=== PATIENT | female | born 1995 | race Caucasian/White ===

== ENCOUNTER → 2016-05-22 | Outpatient (CLI) | payer MEDICAID ==
[~2016-05-22] MED LIST: AMOXICILLIN 25250 MG PO; AMOXICILLIN875 MG PO; HUMIRA40 MG/0.1 SC; IBU800 M1 PO; NORCO 325 MG-51 TAB PO; PERCOCET 325 MG1 TA2 PO; PREDNISONE10 MG PO; PRENATAL MVI; REMICADE V100 MG/VIA IV; ULTRAM 50MG TAB50 MG PO; ZOFRAN8 MG PO; ZOLOFT 50MG50 MG PO
== END ==
LOC: EUO 05-21 14:00
DX: Z02.83 Encounter for blood-alcohol and blood-drug test (principal)

== ENCOUNTER 2016-06-06 16:02 | Outpatient (CLI) | payer MEDICAID ==
[~2016-06-06] VITALS: Ht 160 cm; Wt 67.7 kg
[~2016-06-06 16:02] MED LIST changes: -PRENATAL MVI; -REMICADE V100 MG/VIA IV; -ZOLOFT 50MG50 MG PO
[2016-06-06 16:41] VITALS: BP 91/53; PULSE 74; TEMP 97.7
[2016-06-06 16:50] LABS: ADJUSTED CALCIUM 9.4 mg/dL (8.4-10.2); ALBUMIN 3.9 gm/dL (3.5-5.0); BILIRUBIN,TOTAL 0.5 mg/dL (0.0-1.0); CALCIUM 9.3 mg/dL (8.4-10.2); CREATININE, serum 0.44 mg/dL (0.52-1.25); HEMATOCRIT 33.4 % (37.0-47.0); HEMOGLOBIN 10.8 g/dl (12.5-16.0); MEAN CELL VOLUME 85 fl (80.0-100.0); MEAN CORPUSCULAR HEMOGLOBIN 27 pg (27.0-31.0); MEAN CORPUSCULAR HGB CONC 32 g/dl (33.0-37.0); MEAN PLATELET VOLUME 11.2 fl (7.4-10.4); PLATELET COUNT 271 K/mm3 (130-400); POTASSIUM 3.7 mmol/L (3.4-5.0); RED BLOOD COUNT 3.93 M/mm3 (4.10-5.30); REDCELL DISTRIBUTION WIDTH-CV 15.2 % (11.5-14.5); TOTAL PROTEIN 7.8 gm/dL (6.4-8.2); WHITE BLOOD COUNT 14.8 K/mm3 (4.8-10.8)
[2016-06-06 17:26] VITALS: BP 97/60; PULSE 74; TEMP 97.8
[2016-06-06 18:06] VITALS: BP 101/52; PULSE 76; TEMP 98.5
[2016-06-06 18:34] VITALS: BP 103/58; PULSE 81; TEMP 97.9
[2016-06-06 19:06] VITALS: BP 91/54; PULSE 86; TEMP 98
[2016-06-06 19:25] VITALS: BP 88/56; PULSE 84; TEMP 98.4
== END 2016-06-06 19:26 | disposition home or self-care (01) ==
LOC: EUO 16:02
PROVIDERS: Internal Medicine Gastroenterology
DX: K50.90 Crohn's disease, unspecified, without complications (principal)
CPT/HCPCS: J1200; J1745; J2930; J7050

== ENCOUNTER → 2016-06-17 | Outpatient (CLI) | payer MEDICAID ==
[~2016-06-17] MED LIST changes: +PRENATAL MVI; +REMICADE V100 MG/VIA IV; +ZOLOFT 50MG50 MG PO
[2016-06-17 10:30] LABS: MEAN CELL VOLUME 84 fl (80.0-100.0); MEAN CORPUSCULAR HGB CONC 32 g/dl (33.0-37.0); MEAN PLATELET VOLUME 10.9 fl (7.4-10.4); PLATELET COUNT 246 K/mm3 (130-400); RED BLOOD COUNT 3.63 M/mm3 (4.10-5.30); REDCELL DISTRIBUTION WIDTH-CV 14.6 % (11.5-14.5)
[2016-06-17 10:38] LABS: ADD PATHOLOGY DIFF REVIEW NO; HEMATOCRIT 30.6 % (37.0-47.0); HEMOGLOBIN 9.9 g/dl (12.5-16.0); MEAN CORPUSCULAR HEMOGLOBIN 27 pg (27.0-31.0)
[2016-06-17 10:57] LABS: BAND 14 % (0-10); METAMYELOCYTE 1 % (0-0); NEUTROPHILS 71 % (42.0-75.2); TOTAL CELLS COUNTED 100
[2016-06-17 10:58] LABS: PLATELET ESTIMATE NORMAL (NORMAL)
== END ==
LOC: COL.LAB 09:51
PROVIDERS: Internal Medicine Gastroenterology
DX: K50.90 Crohn's disease, unspecified, without complications (principal); R19.7 Diarrhea, unspecified; R10.9 Unspecified abdominal pain

== ENCOUNTER 2016-07-27 13:11 | Outpatient (CLI) | payer MEDICAID ==
[~2016-07-27] VITALS: Ht 160 cm; Wt 75.5 kg
[~2016-07-27 13:11] MED LIST changes: -PRENATAL MVI; -REMICADE V100 MG/VIA IV; -ZOLOFT 50MG50 MG PO
[2016-07-27 13:29] VITALS: BP 108/60; PULSE 97; TEMP 99
[2016-07-27] MEDS ORDERED: REMICADE V100 MG/VIA IV (13:35)
[2016-07-27] MEDS ORDERED: ZOFRAN8 MG PO (13:36)
[2016-07-27] MEDS ORDERED: PRENATAL MVI (13:36)
[2016-07-27 13:53] VITALS: BP 98/56; PULSE 90
== END 2016-07-27 14:00 | disposition home or self-care (01) ==
LOC: LDRO 13:11
DX: M54.5 Low back pain (principal); Z3A.30 30 weeks gestation of pregnancy

== ENCOUNTER → 2016-08-05 | Outpatient (CLI) | payer MEDICAID ==
[~2016-08-05] VITALS: Ht 160 cm; Wt 75.3 kg
[~2016-08-05] MED LIST changes: +PRENATAL MVI; +REMICADE V100 MG/VIA IV; +ZOLOFT 50MG50 MG PO
[2016-08-05 14:59] LABS: HEMATOCRIT 29.9 % (37.0-47.0); HEMOGLOBIN 9.8 g/dl (12.5-16.0); MEAN CELL VOLUME 81 fl (80.0-100.0); MEAN CORPUSCULAR HEMOGLOBIN 27 pg (27.0-31.0); MEAN CORPUSCULAR HGB CONC 33 g/dl (33.0-37.0); PLATELET COUNT 314 K/mm3 (130-400); RED BLOOD COUNT 3.68 M/mm3 (4.10-5.30); REDCELL DISTRIBUTION WIDTH-CV 13.8 % (11.5-14.5); WHITE BLOOD COUNT 15.3 K/mm3 (4.8-10.8)
[2016-08-05 15:00] VITALS: BP 98/47; PULSE 79; TEMP 97.3
[2016-08-05 15:14] LABS: ADJUSTED CALCIUM 9.3 mg/dL (8.4-10.2); ALBUMIN 3.6 gm/dL (3.5-5.0); BILIRUBIN,TOTAL 0.5 mg/dL (0.0-1.0); CREATININE, serum 0.36 mg/dL (0.52-1.25); POTASSIUM 4.2 mmol/L (3.4-5.0)
== END ==
LOC: EUO 14:00
PROVIDERS: Internal Medicine Gastroenterology
DX: K50.90 Crohn's disease, unspecified, without complications (principal)

== ENCOUNTER 2016-08-12 11:30 | Outpatient (CLI) | payer MEDICAID ==
[~2016-08-12 11:30] MED LIST changes: -ZOLOFT 50MG50 MG PO
[2016-08-12 13:27] LABS: MEAN CELL VOLUME 82 fl (80.0-100.0); MEAN CORPUSCULAR HGB CONC 32 g/dl (33.0-37.0); PLATELET COUNT 326 K/mm3 (130-400); RED BLOOD COUNT 3.58 M/mm3 (4.10-5.30); REDCELL DISTRIBUTION WIDTH-CV 13.7 % (11.5-14.5); WHITE BLOOD COUNT 15.9 K/mm3 (4.8-10.8)
[2016-08-12 13:29] LABS: ADD PATHOLOGY DIFF REVIEW NO; HEMATOCRIT 29.4 % (37.0-47.0); HEMOGLOBIN 9.4 g/dl (12.5-16.0); MEAN CORPUSCULAR HEMOGLOBIN 26 pg (27.0-31.0)
[2016-08-12 13:41] LABS: BAND 3 % (0-10); NEUTROPHILS 86 % (42.0-75.2); TOTAL CELLS COUNTED 100
[2016-08-12 13:44] LABS: ANISOCYTOSIS 1+; HYPOCHROMIA 1+; POLYCHROMASIA 1+
== END 2016-08-19 15:10 | disposition home or self-care (01) ==
LOC: COL.LAB 11:30
PROVIDERS: Physician Assistant
DX: K50.90 Crohn's disease, unspecified, without complications (principal); R19.7 Diarrhea, unspecified; R10.9 Unspecified abdominal pain

== ENCOUNTER 2016-08-19 11:26 | Outpatient (CLI) | payer MEDICAID ==
[~2016-08-19] VITALS: Ht 160 cm; Wt 75.0 kg
[2016-08-19 11:59] VITALS: BP 96/52; PULSE 89; TEMP 98.6
[2016-08-19 12:08] LABS: ADJUSTED CALCIUM 9.1 mg/dL (8.4-10.2); ALBUMIN 3.6 gm/dL (3.5-5.0); BILIRUBIN,TOTAL 0.5 mg/dL (0.0-1.0); CALCIUM 8.8 mg/dL (8.4-10.2); CREATININE, serum 0.38 mg/dL (0.52-1.25); MEAN CELL VOLUME 81 fl (80.0-100.0); MEAN CORPUSCULAR HGB CONC 32 g/dl (33.0-37.0); MEAN PLATELET VOLUME 11.1 fl (7.4-10.4); PLATELET COUNT 228 K/mm3 (130-400); POTASSIUM 3.8 mmol/L (3.4-5.0); RED BLOOD COUNT 3.63 M/mm3 (4.10-5.30); REDCELL DISTRIBUTION WIDTH-CV 14.2 % (11.5-14.5); WHITE BLOOD COUNT 16.9 K/mm3 (4.8-10.8)
[2016-08-19 12:11] LABS: HEMATOCRIT 29.4 % (37.0-47.0); HEMOGLOBIN 9.4 g/dl (12.5-16.0); MEAN CORPUSCULAR HEMOGLOBIN 26 pg (27.0-31.0)
[2016-08-19 13:12] VITALS: BP 104/56; PULSE 81; TEMP 98.2
[2016-08-19 13:40] VITALS: BP 105/61; PULSE 88
[2016-08-19 14:10] VITALS: BP 96/54; PULSE 67
[2016-08-19 14:40] VITALS: BP 102/61; PULSE 83
== END 2016-08-19 16:00 | disposition home or self-care (01) ==
LOC: EUO 11:26
PROVIDERS: Physician Assistant
DX: O99.89 Other specified diseases and conditions complicating pregnancy, childbirth and the puerperium (principal); K50.00 Crohn's disease of small intestine without complications; Z3A.00 Weeks of gestation of pregnancy not specified
CPT/HCPCS: J1200; J1745; J2930; J7050

== ENCOUNTER 2016-09-21 15:59 | Outpatient (CLI) | payer MEDICAID ==
[~2016-09-21] VITALS: Ht 157.5 cm; Wt 76.8 kg
[2016-09-21 16:21] VITALS: BP 110/61; PULSE 68; TEMP 98.2
[2016-09-21 17:10] VITALS: BP 103/53; PULSE 73; TEMP 98.1
== END 2016-09-21 17:20 | disposition home or self-care (01) ==
LOC: LDRO
DX: Z34.83 Encounter for supervision of other normal pregnancy, third trimester (principal); Z3A.38 38 weeks gestation of pregnancy

== ENCOUNTER 2016-09-24 05:42 | Inpatient (IN) | payer MEDICAID ==
[2016-09-24] VITALS (19 sets, daily range): BP systolic 92–143; BP diastolic 48–83; PULSE 55–85; TEMP 97.8–98.3
[~2016-09-24] VITALS: Ht 157.5 cm; Wt 76.8 kg
[2016-09-24 06:19] LABS: BASO # 0.1 (0.0-0.2); BASO % 0.3 % (0.0-2.0); EOS # 0.1 (0.0-0.7); EOS % 0.8 % (0-4.0); GRAN # 12.1 (1.4-6.5); GRAN % 74.3 % (42.2-75.2); HEMATOCRIT 30.4 % (37.0-47.0); HEMOGLOBIN 9.8 g/dl (12.5-16.0); LYMPH # 2.7 (1.2-3.4); LYMPH % 16.4 % (20.0-51.0); MEAN CELL VOLUME 77 fl (80.0-100.0); MEAN CORPUSCULAR HEMOGLOBIN 25 pg (27.0-31.0); MEAN CORPUSCULAR HGB CONC 32 g/dl (33.0-37.0); MEAN PLATELET VOLUME 11.7 fl (7.4-10.4); MONO % 6.1 % (1.7-9.3); PLATELET COUNT 242 K/mm3 (130-400); RED BLOOD COUNT 3.93 M/mm3 (4.10-5.30); WHITE BLOOD COUNT 16.3 K/mm3 (4.8-10.8)
[2016-09-25 01:00] VITALS: BP 106/60; PULSE 68; TEMP 98.1
[2016-09-25 07:05] VITALS: BP 96/51; PULSE 58; TEMP 98.3
[2016-09-25] MEDS ORDERED: IBU800 M1 PO (08:57)
[2016-09-25] MEDS ORDERED: PERCOCET 325 MG1 TA2 PO (08:57)
[2016-09-25 20:45] VITALS: BP 110/53; PULSE 62; TEMP 98.5
[2016-09-26 08:30] VITALS: BP 104/57; PULSE 65; TEMP 98.1
[2016-09-26 12:00] VITALS: BP 105/62; PULSE 81; TEMP 98.2
== END 2016-09-26 12:15 | disposition home or self-care (01) | DRG 766 ==
LOC: OB 05:42
PROVIDERS: Obstetrics & Gynecology
PROC: 10D00Z1 Extraction of Products of Conception, Low, Open Approach (ICD-10-PCS; principal; 2016-09-24)
DX: O34.211 Maternal care for low transverse scar from previous cesarean delivery (principal); O32.1XX0 Maternal care for breech presentation, not applicable or unspecified; N85.8 Other specified noninflammatory disorders of uterus; Z3A.39 39 weeks gestation of pregnancy; Z37.0 Single live birth
CPT/HCPCS: J0690; J1885; J2175; J2270; J2405; J2590; J7120

== ENCOUNTER 2016-11-18 14:13 | Outpatient (CLI) | payer MEDICAID ==
[2016-11-18] VITALS (7 sets, daily range): BP systolic 99–127; BP diastolic 58–91; PULSE 42–48; TEMP 97.3–98.2
[~2016-11-18] VITALS: Ht 157.5 cm; Wt 68.1 kg
[2016-11-18 14:28] LABS: HEMATOCRIT 33.5 % (37.0-47.0); HEMOGLOBIN 10.5 g/dl (12.5-16.0); MEAN CELL VOLUME 78 fl (80.0-100.0); MEAN CORPUSCULAR HEMOGLOBIN 24 pg (27.0-31.0); MEAN CORPUSCULAR HGB CONC 31 g/dl (33.0-37.0); MEAN PLATELET VOLUME 11.3 fl (7.4-10.4); PLATELET COUNT 159 K/mm3 (130-400); RED BLOOD COUNT 4.32 M/mm3 (4.10-5.30); REDCELL DISTRIBUTION WIDTH-CV 15.7 % (11.5-14.5); WHITE BLOOD COUNT 6.4 K/mm3 (4.8-10.8)
[2016-11-18] MEDS ORDERED: ZOLOFT 50MG50 MG PO (14:42)
[2016-11-18 14:56] LABS: ADJUSTED CALCIUM 8.8 mg/dL (8.4-10.2); ALBUMIN 4.4 gm/dL (3.5-5.0); BILIRUBIN,TOTAL 0.5 mg/dL (0.0-1.0); CALCIUM 9.1 mg/dL (8.4-10.2); CREATININE, serum 0.55 mg/dL (0.52-1.25); TOTAL PROTEIN 7.5 gm/dL (6.4-8.2)
== END 2016-11-18 17:12 | disposition home or self-care (01) ==
LOC: EUO 14:13
PROVIDERS: Internal Medicine Gastroenterology
DX: K50.90 Crohn's disease, unspecified, without complications (principal)
CPT/HCPCS: J1200; J1745; J2930; J7050; Q5102-ZB

== ENCOUNTER 2017-08-22 01:21 | Emergency (ER) | payer MEDICAID ==
[~2017-08-22] VITALS: Ht 160 cm; Wt 61.4 kg
[~2017-08-22 01:21] MED LIST changes: +ZOLOFT 50MG50 MG PO
[2017-08-22 01:26] VITALS: BP 120/72; TEMP 96.9
[2017-08-22 02:05] LABS: MEAN CELL VOLUME 75 fl (80.0-100.0); MEAN CORPUSCULAR HEMOGLOBIN 23 pg (27.0-31.0); MEAN CORPUSCULAR HGB CONC 31 g/dl (33.0-37.0); MEAN PLATELET VOLUME 11.1 fl (7.4-10.4); PLATELET COUNT 328 K/mm3 (130-400); RED BLOOD COUNT 4.71 M/mm3 (4.10-5.30); REDCELL DISTRIBUTION WIDTH-CV 16.3 % (11.5-14.5)
[2017-08-22 02:14] LABS: HEMATOCRIT 35.3 % (37.0-47.0)
[2017-08-22 02:18] LABS: ALBUMIN 4.2 gm/dL (3.5-5.0); BILIRUBIN,TOTAL 0.3 mg/dL (0.0-1.0); CALCIUM 9.3 mg/dL (8.4-10.2); CREATININE, serum 0.45 mg/dL (0.52-1.25); TOTAL PROTEIN 8.4 gm/dL (6.4-8.2)
[2017-08-22 03:01] LABS: COLLECTION METHOD CLEAN CATCH
[2017-08-22 03:23] LABS: MUCOUS Present /lpf; PH 6 (5-8); SQUAMOUS EPITHELIAL 0-2 /hpf; URINE APPEARANCE Clear; URINE BACTERIA None Seen /hpf; URINE BILIRUBIN Negative (NEGATIVE); URINE BLOOD 2+ (NEGATIVE); URINE COLOR Yellow; URINE GLUCOSE Negative (NEGATIVE); URINE KETONE Trace (NEGATIVE); URINE LEUKOCYTE ESTERASE Trace (NEGATIVE); URINE NITRATE Negative (NEGATIVE); URINE PROTEIN(semi-quant) Negative (NEGATIVE); URINE UROBILINOGEN Negative (NEGATIVE)
[2017-08-22] MEDS ORDERED: PREDNISONE20 MG PO (04:09)
[2017-08-22 04:19] VITALS: PULSE 70
[2017-08-22 04:47] LABS: BAND 5 % (0-10); METAMYELOCYTE 1 % (0-0); NEUTROPHILS 90 % (42.0-75.2)
[2017-08-22 04:48] LABS: LYMPHOCYTE 4 % (20.0-51.0)
[2017-08-22 04:49] LABS: ANISOCYTOSIS 1+; HYPOCHROMIA 2+; POIKILOCYTOSIS 1+
[2017-08-22 04:50] LABS: PLATELET ESTIMATE NORMAL (NORMAL)
[2017-08-22 08:07] LABS: PATHOLOGY DIFF REVIEW OK
== END 2017-08-22 04:21 | disposition home or self-care (01) ==
LOC: COL.ER 01:21
PROVIDERS: Emergency Medicine
DX: K50.90 Crohn's disease, unspecified, without complications (principal); Z98.890 Other specified postprocedural states
CPT/HCPCS: J2765; J2930; J3010; J7030; Q9967

== ENCOUNTER → 2017-08-29 | Outpatient (CLI) | payer SELFPAY ==
[~2017-08-29] MED LIST changes: +PREDNISONE20 MG PO
== END ==
LOC: COL.RAD 06:14
DX: K50.90 Crohn's disease, unspecified, without complications (principal)
CPT/HCPCS: A9537; J2270

== ENCOUNTER 2017-09-18 14:30 | Outpatient (RCR) | payer OTHER ==
[2017-08-07 15:12] LABS: MEAN CELL VOLUME 76 fl (80.0-100.0); MEAN CORPUSCULAR HGB CONC 31 g/dl (33.0-37.0); MEAN PLATELET VOLUME 10.7 fl (7.4-10.4); PLATELET COUNT 469 K/mm3 (130-400); RED BLOOD COUNT 4.83 M/mm3 (4.10-5.30); REDCELL DISTRIBUTION WIDTH-CV 15.5 % (11.5-14.5)
[2017-08-07 15:13] LABS: HEMATOCRIT 36.5 % (37.0-47.0); HEMOGLOBIN 11.2 g/dl (12.5-16.0); MEAN CORPUSCULAR HEMOGLOBIN 23 pg (27.0-31.0)
[2017-08-07 15:30] LABS: ALBUMIN 4.2 gm/dL (3.5-5.0); BILIRUBIN,TOTAL 0.3 mg/dL (0.0-1.0); CALCIUM 9.1 mg/dL (8.4-10.2); CREATININE, serum 0.59 mg/dL (0.52-1.25); POTASSIUM 3.8 mmol/L (3.4-5.0); TOTAL PROTEIN 8.4 gm/dL (6.4-8.2)
[2017-08-07 16:27] VITALS: BP 105/63; PULSE 80; TEMP 98.1
[2017-08-07 16:58] VITALS: BP 98/55; PULSE 70; TEMP 98.1
[2017-08-07 17:28] VITALS: BP 99/63; PULSE 85; TEMP 99
[2017-08-21 14:44] VITALS: BP 99/60; PULSE 85; TEMP 98.9
[2017-08-21 15:08] LABS: BILIRUBIN,TOTAL 0.2 mg/dL (0.0-1.0); CALCIUM 9.1 mg/dL (8.4-10.2); CREATININE, serum 0.64 mg/dL (0.52-1.25); POTASSIUM 3.8 mmol/L (3.4-5.0); TOTAL PROTEIN 7.8 gm/dL (6.4-8.2)
[2017-08-21 15:28] LABS: HEMOGLOBIN 10.5 g/dl (12.5-16.0); MEAN CELL VOLUME 77 fl (80.0-100.0); MEAN CORPUSCULAR HEMOGLOBIN 24 pg (27.0-31.0); MEAN CORPUSCULAR HGB CONC 31 g/dl (33.0-37.0); MEAN PLATELET VOLUME 11.1 fl (7.4-10.4); PLATELET COUNT 304 K/mm3 (130-400); RED BLOOD COUNT 4.45 M/mm3 (4.10-5.30); REDCELL DISTRIBUTION WIDTH-CV 16.5 % (11.5-14.5)
[2017-08-21 15:35] LABS: HEMATOCRIT 34.3 % (37.0-47.0)
[~2017-09-18] VITALS: Ht 157.5 cm; Wt 60.9 kg
[2017-09-18 14:56] VITALS: BP 110/58; PULSE 84; TEMP 98.2
[2017-09-18 14:57] LABS: HEMOGLOBIN 11.1 g/dl (12.5-16.0); MEAN CELL VOLUME 77 fl (80.0-100.0); MEAN CORPUSCULAR HEMOGLOBIN 24 pg (27.0-31.0); MEAN CORPUSCULAR HGB CONC 31 g/dl (33.0-37.0); MEAN PLATELET VOLUME 10.8 fl (7.4-10.4); PLATELET COUNT 355 K/mm3 (130-400); RED BLOOD COUNT 4.68 M/mm3 (4.10-5.30); REDCELL DISTRIBUTION WIDTH-CV 17.4 % (11.5-14.5)
[2017-09-18 15:07] LABS: ALBUMIN 4.2 gm/dL (3.5-5.0); BILIRUBIN,TOTAL 0.3 mg/dL (0.0-1.0); CALCIUM 9.3 mg/dL (8.4-10.2); CREATININE, serum 0.56 mg/dL (0.52-1.25); POTASSIUM 4.4 mmol/L (3.4-5.0); TOTAL PROTEIN 8.3 gm/dL (6.4-8.2)
[2017-09-18 15:08] LABS: HEMATOCRIT 36.2 % (37.0-47.0)
[2017-09-18 15:35] VITALS: BP 110/72; PULSE 64; TEMP 98.2
[2017-09-18 16:05] VITALS: BP 110/72; PULSE 62; TEMP 98.2
[2017-09-18 17:05] VITALS: BP 112/72; PULSE 64; TEMP 98.2
[2017-09-18 17:15] VITALS: BP 114/78; PULSE 64; TEMP 98.2
== END 2017-11-04 17:14 | disposition home or self-care (01) ==
LOC: EUO 14:30
PROVIDERS: Internal Medicine Gastroenterology; Physician Assistant
DX: K50.90 Crohn's disease, unspecified, without complications (principal)
CPT/HCPCS: J1200; J1745; J2930; J7050; Q5103

== ENCOUNTER 2017-11-27 14:51 | Outpatient (CLI) | payer OTHER ==
[~2017-11-27] VITALS: Ht 157.5 cm; Wt 68.0 kg
[2017-11-27 15:15] LABS: HEMOGLOBIN 10.6 g/dl (12.5-16.0); MEAN CELL VOLUME 78 fl (80.0-100.0); MEAN CORPUSCULAR HEMOGLOBIN 25 pg (27.0-31.0); MEAN CORPUSCULAR HGB CONC 32 g/dl (33.0-37.0); MEAN PLATELET VOLUME 10.8 fl (7.4-10.4); PLATELET COUNT 305 K/mm3 (130-400); RED BLOOD COUNT 4.29 M/mm3 (4.10-5.30); REDCELL DISTRIBUTION WIDTH-CV 14.9 % (11.5-14.5)
[2017-11-27 15:16] LABS: HEMATOCRIT 33.5 % (37.0-47.0)
[2017-11-27 15:40] LABS: ALBUMIN 4.1 gm/dL (3.5-5.0); BILIRUBIN,TOTAL 0.4 mg/dL (0.0-1.0); CALCIUM 8.8 mg/dL (8.4-10.2); CREATININE, serum 0.53 mg/dL (0.52-1.25); POTASSIUM 3.3 mmol/L (3.4-5.0); TOTAL PROTEIN 7.6 gm/dL (6.4-8.2)
[2017-11-27 17:15] VITALS: BP 97/56; PULSE 60
[2017-11-27 17:45] VITALS: BP 109/62; PULSE 60
[2017-11-27 18:15] VITALS: BP 104/59; PULSE 52
[2017-11-27 18:50] VITALS: BP 96/50; PULSE 58
== END 2017-11-27 19:15 | disposition home or self-care (01) ==
LOC: EUO 14:51
PROVIDERS: Internal Medicine Gastroenterology
DX: K50.90 Crohn's disease, unspecified, without complications (principal); Z79.899 Other long term (current) drug therapy
CPT/HCPCS: J1200; J2930; J7050

== ENCOUNTER 2018-01-23 14:45 | Outpatient (CLI) | payer OTHER ==
[~2018-01-23] VITALS: Ht 157.5 cm; Wt 71.4 kg
[2018-01-23 15:38] LABS: HEMOGLOBIN 11.1 g/dl (12.5-16.0); MEAN CELL VOLUME 81 fl (80.0-100.0); MEAN CORPUSCULAR HEMOGLOBIN 26 pg (27.0-31.0); MEAN CORPUSCULAR HGB CONC 32 g/dl (33.0-37.0); MEAN PLATELET VOLUME 11.3 fl (7.4-10.4); PLATELET COUNT 317 K/mm3 (130-400); RED BLOOD COUNT 4.31 M/mm3 (4.10-5.30); REDCELL DISTRIBUTION WIDTH-CV 15.1 % (11.5-14.5)
[2018-01-23 15:47] LABS: HEMATOCRIT 34.9 % (37.0-47.0)
[2018-01-23 15:52] LABS: ALBUMIN 4.1 gm/dL (3.5-5.0); BILIRUBIN,TOTAL 0.3 mg/dL (0.0-1.0); CALCIUM 8.8 mg/dL (8.4-10.2); CREATININE, serum 0.52 mg/dL (0.52-1.25); POTASSIUM 3.5 mmol/L (3.4-5.0); TOTAL PROTEIN 7.6 gm/dL (6.4-8.2)
[2018-01-23 17:12] VITALS: BP 101/62; PULSE 57; TEMP 97.6
== END 2018-01-23 17:15 | disposition home or self-care (01) ==
LOC: EUO 14:45
PROVIDERS: Physician Assistant
DX: K50.90 Crohn's disease, unspecified, without complications (principal); Z79.899 Other long term (current) drug therapy
CPT/HCPCS: J1200; J1745; J2930

== ENCOUNTER 2018-02-17 15:36 | Outpatient (CLI) | payer OTHER ==
[~2018-02-17] VITALS: Ht 157.5 cm; Wt 69.9 kg
[2018-02-17 16:05] LABS: HEMOGLOBIN 10.5 g/dl (12.5-16.0); MEAN CELL VOLUME 79 fl (80.0-100.0); MEAN CORPUSCULAR HEMOGLOBIN 26 pg (27.0-31.0); MEAN CORPUSCULAR HGB CONC 32 g/dl (33.0-37.0); MEAN PLATELET VOLUME 10.6 fl (7.4-10.4); PLATELET COUNT 440 K/mm3 (130-400); RED BLOOD COUNT 4.12 M/mm3 (4.10-5.30)
[2018-02-17 16:07] LABS: HEMATOCRIT 32.7 % (37.0-47.0)
[2018-02-17 16:24] LABS: BILIRUBIN,TOTAL 0.2 mg/dL (0.0-1.0); CREATININE, serum 0.42 mg/dL (0.52-1.25); POTASSIUM 3.6 mmol/L (3.4-5.0); TOTAL PROTEIN 7.4 gm/dL (6.4-8.2)
[2018-02-17 17:00] VITALS: BP 105/65; PULSE 68; TEMP 98.2
[2018-02-17 17:30] VITALS: BP 101/56; PULSE 60
[2018-02-17 18:00] VITALS: BP 107/66; PULSE 76
[2018-02-17 18:30] VITALS: BP 103/68; PULSE 73
[2018-02-17 19:00] VITALS: BP 106/63; PULSE 64
[2018-02-17 19:12] VITALS: BP 101/65; PULSE 72
== END 2018-02-17 19:26 | disposition home or self-care (01) ==
LOC: EUO 15:36
PROVIDERS: Physician Assistant
DX: K50.90 Crohn's disease, unspecified, without complications (principal); Z79.899 Other long term (current) drug therapy
CPT/HCPCS: J1200; J1745; J2930; J7050

== ENCOUNTER 2018-02-19 17:36 | Emergency (ER) | payer SELFPAY ==
[~2018-02-19] VITALS: Ht 160 cm; Wt 69.1 kg
[2018-02-19 17:38] VITALS: TEMP 97.7
[2018-02-19 18:14] LABS: BASO # 0.1 (0.0-0.2); BASO % 0.7 % (0.0-2.0); EOS # 0.2 (0.0-0.7); EOS % 2.3 % (0-4.0); GRAN # 7.2 (1.4-6.5); GRAN % 68.7 % (42.2-75.2); HEMATOCRIT 37.1 % (37.0-47.0); HEMOGLOBIN 11.8 g/dl (12.5-16.0); LYMPH # 2.3 (1.2-3.4); LYMPH % 21.6 % (20.0-51.0); MEAN CELL VOLUME 79 fl (80.0-100.0); MEAN CORPUSCULAR HEMOGLOBIN 25 pg (27.0-31.0); MEAN CORPUSCULAR HGB CONC 32 g/dl (33.0-37.0); MEAN PLATELET VOLUME 10.6 fl (7.4-10.4); MONO # 0.7 (0.1-0.6); MONO % 6.2 % (1.7-9.3); PLATELET COUNT 495 K/mm3 (130-400); RED BLOOD COUNT 4.67 M/mm3 (4.10-5.30); REDCELL DISTRIBUTION WIDTH-CV 14.3 % (11.5-14.5)
[2018-02-19 18:27] LABS: COLLECTION METHOD CLEAN CATCH
[2018-02-19 18:29] LABS: ALBUMIN 4.3 gm/dL (3.5-5.0); BILIRUBIN,TOTAL 0.2 mg/dL (0.0-1.0); CALCIUM 9.2 mg/dL (8.4-10.2); CREATININE, serum 0.55 mg/dL (0.52-1.25); POTASSIUM 3.6 mmol/L (3.4-5.0); TOTAL PROTEIN 7.8 gm/dL (6.4-8.2)
[2018-02-19 18:39] LABS: MUCOUS Present /lpf; PH 6 (5-8); URINE APPEARANCE Clear; URINE BACTERIA Rare /hpf; URINE BILIRUBIN Negative (NEGATIVE); URINE BLOOD Negative (NEGATIVE); URINE COLOR Yellow; URINE GLUCOSE Negative (NEGATIVE); URINE KETONE Negative (NEGATIVE); URINE LEUKOCYTE ESTERASE Negative (NEGATIVE); URINE NITRATE Negative (NEGATIVE); URINE PROTEIN(semi-quant) 1+ (NEGATIVE); URINE RBC 0-2 /hpf; URINE UROBILINOGEN Negative (NEGATIVE)
[2018-02-19] MEDS ORDERED: ZOFRAN 4MG T4 MG/TAB PO (19:24)
[2018-02-19] MEDS ORDERED: NORCO 325 MG-51 TAB PO (19:24)
[2018-02-19] MEDS ORDERED: PREDNISONE10 MG PO (19:24)
[2018-02-19 19:33] VITALS: BP 108/74; PULSE 92
== END 2018-02-19 21:05 | disposition home or self-care (01) ==
LOC: COL.ER 17:36
PROVIDERS: Emergency Medicine
DX: R10.84 Generalized abdominal pain (principal); R19.7 Diarrhea, unspecified; R11.2 Nausea with vomiting, unspecified; K50.90 Crohn's disease, unspecified, without complications; Z98.890 Other specified postprocedural states
CPT/HCPCS: J1885; J2270; J2405; J7512; Q9967

== ENCOUNTER 2018-03-13 16:13 | Outpatient (CLI) | payer OTHER ==
[~2018-03-13] VITALS: Ht 160 cm; Wt 70.9 kg
[~2018-03-13 16:13] MED LIST changes: +CIPRO 500MG TA500 MG PO; +FLAGYL500 MG PO; +ZOFRAN 4MG T4 MG/TAB PO
[2018-03-13 16:42] LABS: HEMATOCRIT 39.2 % (37.0-47.0); HEMOGLOBIN 12.5 g/dl (12.5-16.0); MEAN CELL VOLUME 82 fl (80.0-100.0); MEAN CORPUSCULAR HEMOGLOBIN 26 pg (27.0-31.0); MEAN CORPUSCULAR HGB CONC 32 g/dl (33.0-37.0); MEAN PLATELET VOLUME 10.5 fl (7.4-10.4); PLATELET COUNT 319 K/mm3 (130-400); RED BLOOD COUNT 4.77 M/mm3 (4.10-5.30); REDCELL DISTRIBUTION WIDTH-CV 16.5 % (11.5-14.5)
[2018-03-13 16:58] LABS: ALBUMIN 4.1 gm/dL (3.5-5.0); BILIRUBIN,TOTAL 0.2 mg/dL (0.0-1.0); CALCIUM 9.3 mg/dL (8.4-10.2); CREATININE, serum 0.81 mg/dL (0.52-1.25); POTASSIUM 4.3 mmol/L (3.4-5.0); TOTAL PROTEIN 7.3 gm/dL (6.4-8.2)
[2018-03-13] MEDS ORDERED: IRON 27 MG PO (17:10)
[2018-03-13 17:20] VITALS: BP 104/64; PULSE 70; TEMP 98.2
[2018-03-13 17:50] VITALS: BP 79/43; PULSE 54; TEMP 98.1
[2018-03-13 18:20] VITALS: BP 97/59; PULSE 64; TEMP 98.4
[2018-03-13 18:50] VITALS: BP 104/60; PULSE 54; TEMP 98.1
[2018-03-13 19:18] VITALS: BP 100/51; PULSE 80; TEMP 98.1
== END 2018-03-13 19:28 | disposition home health service (06) ==
LOC: EUO 16:13
PROVIDERS: Physician Assistant
DX: K50.90 Crohn's disease, unspecified, without complications (principal); Z79.899 Other long term (current) drug therapy
CPT/HCPCS: J1200; J1745; J7050

== ENCOUNTER → 2018-04-14 | Emergency (ER) | payer OTHER ==
[~2018-04-14] VITALS: Ht 160 cm; Wt 68.2 kg
[~2018-04-14] MED LIST changes: +IRON 27 MG PO
[2018-04-14 18:54] VITALS: BP 118/75; TEMP 98.5
[2018-04-14 20:42] VITALS: PULSE 77
== END ==
LOC: COL.ER 18:42
DX: F41.9 Anxiety disorder, unspecified (principal); Z98.890 Other specified postprocedural states
CPT/HCPCS: J1885

== ENCOUNTER 2018-04-15 11:19 | Outpatient (CLI) | payer OTHER ==
[~2018-04-15] VITALS: Ht 160 cm; Wt 70.9 kg
[2018-04-15 11:56] LABS: HEMATOCRIT 40.4 % (37.0-47.0); MEAN CELL VOLUME 85 fl (80.0-100.0); MEAN CORPUSCULAR HEMOGLOBIN 27 pg (27.0-31.0); MEAN CORPUSCULAR HGB CONC 32 g/dl (33.0-37.0); MEAN PLATELET VOLUME 11.2 fl (7.4-10.4); PLATELET COUNT 284 K/mm3 (130-400); RED BLOOD COUNT 4.75 M/mm3 (4.10-5.30); REDCELL DISTRIBUTION WIDTH-CV 16.7 % (11.5-14.5)
[2018-04-15 12:06] LABS: ALBUMIN 4.3 gm/dL (3.5-5.0); BILIRUBIN,TOTAL 0.5 mg/dL (0.0-1.0); CALCIUM 9.1 mg/dL (8.4-10.2); CREATININE, serum 0.56 mg/dL (0.52-1.25); POTASSIUM 4.3 mmol/L (3.4-5.0); TOTAL PROTEIN 7.5 gm/dL (6.4-8.2)
[2018-04-15 13:30] VITALS: BP 99/60; PULSE 72; TEMP 97.1
[2018-04-15 14:00] VITALS: BP 99/58; PULSE 67; TEMP 97.1
[2018-04-15 14:30] VITALS: BP 101/58; PULSE 63; TEMP 98
[2018-04-15 15:00] VITALS: BP 100/47; PULSE 63; TEMP 98.1
[2018-04-15 15:35] VITALS: BP 99/54; PULSE 56; TEMP 98.1
== END 2018-04-15 15:48 | disposition home or self-care (01) ==
LOC: EUO 11:19
PROVIDERS: Physician Assistant
DX: K50.90 Crohn's disease, unspecified, without complications (principal)
CPT/HCPCS: J1200; J7050

== ENCOUNTER 2018-08-12 15:00 | Outpatient (RCR) | payer MEDICAID, OTHER ==
[2018-06-23 14:30] LABS: MEAN CELL VOLUME 86 fl (80.0-100.0); MEAN CORPUSCULAR HEMOGLOBIN 29 pg (27.0-31.0); MEAN CORPUSCULAR HGB CONC 34 g/dl (33.0-37.0); MEAN PLATELET VOLUME 11.2 fl (7.4-10.4); PLATELET COUNT 286 K/mm3 (130-400); RED BLOOD COUNT 4.12 M/mm3 (4.10-5.30); REDCELL DISTRIBUTION WIDTH-CV 13.2 % (11.5-14.5)
[2018-06-23 14:31] LABS: HEMATOCRIT 35.4 % (37.0-47.0)
[2018-06-23 14:40] LABS: ALBUMIN 4.4 gm/dL (3.5-5.0); BILIRUBIN,TOTAL 0.5 mg/dL (0.0-1.0); CALCIUM 9.2 mg/dL (8.4-10.2); CREATININE, serum 0.5 mg/dL (0.52-1.25); POTASSIUM 3.7 mmol/L (3.4-5.0); TOTAL PROTEIN 7.7 gm/dL (6.4-8.2)
[2018-06-23 15:00] VITALS: BP 95/59; PULSE 65; TEMP 98.3
--- NOTE | 2018-06-23 15:57 | NUR ---
[facility] [phone]
--- NOTE | 2018-06-23 17:14 | NUR ---
Spoke with Amber in pharmacy. She stated the Entyvio will 06/24/18 at 1500 if refrigerated. This RN placed medication in ICU om[facility]ell refrigerator. If the pt does not get her Entyvio tomorrow, please notify the Pharmacy [facility].
--- NOTE | 2018-06-23 17:32 | NUR ---
This RN informed Linh in Pharmacy that the pt does not want her Remicade.
[2018-06-24 11:04] VITALS: BP 90/49; PULSE 68; TEMP 98
--- NOTE | 2018-06-24 11:08 | NUR ---
Call received from Office nurse,Ángela terrazas to infuse entyvio today,orders received.
[2018-07-15 12:21] LABS: HEMOGLOBIN 10.7 g/dl (12.5-16.0); MEAN CELL VOLUME 86 fl (80.0-100.0); MEAN CORPUSCULAR HEMOGLOBIN 28 pg (27.0-31.0); MEAN CORPUSCULAR HGB CONC 33 g/dl (33.0-37.0); MEAN PLATELET VOLUME 10.9 fl (7.4-10.4); PLATELET COUNT 300 K/mm3 (130-400); REDCELL DISTRIBUTION WIDTH-CV 12.2 % (11.5-14.5)
[2018-07-15 12:27] LABS: HEMATOCRIT 32.8 % (37.0-47.0)
[2018-07-15 12:52] LABS: ALBUMIN 4.3 gm/dL (3.5-5.0); BILIRUBIN,TOTAL 0.5 mg/dL (0.0-1.0); CALCIUM 9.2 mg/dL (8.4-10.2); CREATININE, serum 0.54 (0.52-1.25); TOTAL PROTEIN 7.6 gm/dL (6.4-8.2)
[2018-07-15 13:35] VITALS: BP 97/52; PULSE 65; TEMP 98.9
[2018-07-15 13:45] VITALS: BP 101/55; PULSE 56
[2018-07-15 13:55] VITALS: BP 98/49; PULSE 55
[2018-07-15 14:05] VITALS: BP 100/49; PULSE 63; TEMP 98
[~2018-08-12] VITALS: Ht 160 cm; Wt 72.1 kg
[~2018-08-12 15:00] MED LIST changes: +ENTYVIO
[2018-08-12 16:32] LABS: MEAN CELL VOLUME 86 fl (80.0-100.0); MEAN CORPUSCULAR HGB CONC 31 g/dl (33.0-37.0); MEAN PLATELET VOLUME 11.2 fl (7.4-10.4); PLATELET COUNT 245 K/mm3 (130-400); RED BLOOD COUNT 3.37 M/mm3 (4.10-5.30); REDCELL DISTRIBUTION WIDTH-CV 12.2 % (11.5-14.5)
[2018-08-12 16:48] LABS: HEMATOCRIT 28.8 % (37.0-47.0); MEAN CORPUSCULAR HEMOGLOBIN 27 pg (27.0-31.0)
[2018-08-12 16:50] LABS: ALBUMIN 3.7 gm/dL (3.5-5.0); BILIRUBIN,TOTAL 0.1 mg/dL (0.0-1.0); CALCIUM 8.7 mg/dL (8.4-10.2); CREATININE, serum 0.49 (0.52-1.25); POTASSIUM 3.7 mmol/L (3.4-5.0); TOTAL PROTEIN 6.8 gm/dL (6.4-8.2)
[2018-08-12] MEDS ORDERED: NATURAL IRON65 MG PO (17:44)
[2018-08-12 17:45] VITALS: BP 99/56; PULSE 60; TEMP 98.3
== END 2018-08-12 18:24 | disposition home or self-care (01) ==
LOC: EUO 15:00
PROVIDERS: Internal Medicine Gastroenterology
DX: K51.90 Ulcerative colitis, unspecified, without complications (principal); Z79.899 Other long term (current) drug therapy
CPT/HCPCS: J1200; J2920; J3380; J7050

== ENCOUNTER 2018-11-09 13:12 | Outpatient (CLI) | payer MEDICAID ==
[~2018-11-09] VITALS: Ht 160 cm; Wt 67.0 kg
[~2018-11-09 13:12] MED LIST changes: +NATURAL IRON65 MG PO
[2018-11-09] MEDS ORDERED: CYMBALTA 60MG60 MG PO (13:38)
[2018-11-09 13:50] LABS: HEMATOCRIT 39.5 % (37.0-47.0); HEMOGLOBIN 12.7 g/dl (12.5-16.0); MEAN CELL VOLUME 80 fl (80.0-100.0); MEAN CORPUSCULAR HEMOGLOBIN 26 pg (27.0-31.0); MEAN CORPUSCULAR HGB CONC 32 g/dl (33.0-37.0); MEAN PLATELET VOLUME 11.2 fl (7.4-10.4); PLATELET COUNT 252 K/mm3 (130-400); RED BLOOD COUNT 4.95 M/mm3 (4.10-5.30); REDCELL DISTRIBUTION WIDTH-CV 17.4 % (11.5-14.5)
[2018-11-09 14:03] LABS: ALBUMIN 4.4 gm/dL (3.5-5.0); BILIRUBIN,TOTAL 0.3 mg/dL (0.0-1.0); CALCIUM 9.4 mg/dL (8.4-10.2); CREATININE, serum 0.5 (0.52-1.25); POTASSIUM 4.2 mmol/L (3.4-5.0); TOTAL PROTEIN 7.6 gm/dL (6.4-8.2)
[2018-11-09 14:40] VITALS: BP 93/54; PULSE 66; TEMP 97.9
[2018-11-09 15:07] VITALS: BP 99/59; PULSE 61
[2018-11-09 15:17] VITALS: BP 96/56; PULSE 56
[2018-11-09 15:27] VITALS: BP 95/58; PULSE 69
[2018-11-09 15:37] VITALS: BP 90/57; PULSE 68
== END 2018-11-09 15:41 | disposition home or self-care (01) ==
LOC: EUO 13:12
PROVIDERS: Internal Medicine Gastroenterology
DX: K51.90 Ulcerative colitis, unspecified, without complications (principal); Z79.899 Other long term (current) drug therapy
CPT/HCPCS: J1200; J2920; J2930; J3380; J7050

== ENCOUNTER → 2019-01-05 | Outpatient (CLI) | payer MEDICAID ==
[~2019-01-05] VITALS: Ht 160 cm; Wt 67.5 kg
[~2019-01-05] MED LIST changes: +CYMBALTA 60MG60 MG PO
[2019-01-05 13:43] LABS: HEMATOCRIT 39.6 % (37.0-47.0); HEMOGLOBIN 13.6 g/dl (12.5-16.0); MEAN CELL VOLUME 85 fl (80.0-100.0); MEAN CORPUSCULAR HEMOGLOBIN 29 pg (27.0-31.0); MEAN CORPUSCULAR HGB CONC 34 g/dl (33.0-37.0); MEAN PLATELET VOLUME 10.7 fl (7.4-10.4); PLATELET COUNT 237 K/mm3 (130-400); RED BLOOD COUNT 4.67 M/mm3 (4.10-5.30); REDCELL DISTRIBUTION WIDTH-CV 13.9 % (11.5-14.5)
[2019-01-05 13:57] LABS: ALBUMIN 4.5 gm/dL (3.5-5.0); BILIRUBIN,TOTAL 0.5 mg/dL (0.0-1.0); CALCIUM 8.8 mg/dL (8.4-10.2); CREATININE, serum 0.52 (0.52-1.25); POTASSIUM 3.8 mmol/L (3.4-5.0); TOTAL PROTEIN 7.7 gm/dL (6.4-8.2)
[2019-01-05 14:40] VITALS: BP 106/65; PULSE 81; TEMP 98.3
[2019-01-05 15:00] VITALS: BP 100/58; PULSE 68; TEMP 98.4
[2019-01-05 15:20] VITALS: BP 105/62; PULSE 72
[2019-01-05 15:30] VITALS: BP 103/58; PULSE 68
== END ==
LOC: EUO 13:00
PROVIDERS: Internal Medicine Gastroenterology
DX: K51.90 Ulcerative colitis, unspecified, without complications (principal)
CPT/HCPCS: J1200; J2930; J3380; J7050

== ENCOUNTER 2019-03-02 13:40 | Outpatient (CLI) | payer MEDICAID ==
[~2019-03-02] VITALS: Ht 160 cm; Wt 71.0 kg
[2019-03-02] MEDS ORDERED: WELCHOL 625MG625 MG PO (14:07)
[2019-03-02] MEDS ORDERED: VISTARIL50 MG PO (14:08)
[2019-03-02 14:14] LABS: HEMATOCRIT 41.5 % (37.0-47.0); HEMOGLOBIN 14.4 g/dl (12.5-16.0); MEAN CELL VOLUME 88 fl (80.0-100.0); MEAN CORPUSCULAR HEMOGLOBIN 31 pg (27.0-31.0); MEAN CORPUSCULAR HGB CONC 35 g/dl (33.0-37.0); MEAN PLATELET VOLUME 11.8 fl (7.4-10.4); PLATELET COUNT 263 K/mm3 (130-400); REDCELL DISTRIBUTION WIDTH-CV 11.8 % (11.5-14.5)
[2019-03-02 14:53] LABS: ALBUMIN 4.5 gm/dL (3.5-5.0); BILIRUBIN,TOTAL 0.4 mg/dL (0.0-1.0); CALCIUM 9.2 mg/dL (8.4-10.2); CREATININE, serum 0.64 (0.52-1.25); POTASSIUM 4.3 mmol/L (3.4-5.0); TOTAL PROTEIN 7.7 gm/dL (6.4-8.2)
[2019-03-02 15:53] VITALS: BP 104/60; PULSE 78; TEMP 97.9
== END 2019-03-02 17:04 | disposition home or self-care (01) ==
LOC: EUO 13:40
PROVIDERS: Internal Medicine Gastroenterology
DX: K51.90 Ulcerative colitis, unspecified, without complications (principal); Z79.899 Other long term (current) drug therapy
CPT/HCPCS: J1200; J2930; J3380; J7050

== ENCOUNTER 2019-05-05 14:00 | Outpatient (RCR) | payer MEDICAID ==
--- NOTE | 2019-04-27 14:00 | NUR ---
Pt insurance PA exp on 04/23/19. This nurse called Dr. Matos's office for [facility]. Nina at office stated she would submid an uremaritzant PA. Pt stated she would wait to hear from office.
[2019-04-27 14:15] LABS: ALBUMIN 4.6 gm/dL (3.5-5.0); BILIRUBIN,TOTAL 0.2 mg/dL (0.0-1.0); CALCIUM 9.1 mg/dL (8.4-10.2); CREATININE, serum 0.49 (0.52-1.25); HEMATOCRIT 41.4 % (37.0-47.0); HEMOGLOBIN 14.4 g/dl (12.5-16.0); MEAN CELL VOLUME 87 fl (80.0-100.0); MEAN CORPUSCULAR HEMOGLOBIN 30 pg (27.0-31.0); MEAN CORPUSCULAR HGB CONC 35 g/dl (33.0-37.0); MEAN PLATELET VOLUME 11.9 fl (7.4-10.4); PLATELET COUNT 278 K/mm3 (130-400); POTASSIUM 3.9 mmol/L (3.4-5.0); RED BLOOD COUNT 4.76 M/mm3 (4.10-5.30)
--- NOTE | 2019-04-27 14:30 | NUR ---
Nina stated she was waiting on a call back from insurance. Pt stated she was ok waiting.
--- NOTE | 2019-04-27 15:20 | NUR ---
Pt will leave and reschedule when PA in approved.
[~2019-05-05] VITALS: Ht 160 cm; Wt 75.4 kg
[~2019-05-05 14:00] MED LIST changes: +CYMBALTA 30MG30 MG PO; +DEPO-PROVER150 MG/M1 IM; +VISTARIL50 MG PO; +WELCHOL 625MG625 MG PO
[2019-05-05 14:52] VITALS: BP 100/61; PULSE 83; TEMP 97.9
[2019-05-05 15:10] LABS: HEMOGLOBIN 13.9 g/dl (12.5-16.0); MEAN CELL VOLUME 87 fl (80.0-100.0); MEAN CORPUSCULAR HEMOGLOBIN 30 pg (27.0-31.0); MEAN CORPUSCULAR HGB CONC 35 g/dl (33.0-37.0); PLATELET COUNT 287 K/mm3 (130-400); RED BLOOD COUNT 4.59 M/mm3 (4.10-5.30); REDCELL DISTRIBUTION WIDTH-CV 12.1 % (11.5-14.5)
[2019-05-05 15:25] LABS: ALBUMIN 4.4 gm/dL (3.5-5.0); BILIRUBIN,TOTAL 0.3 mg/dL (0.0-1.0); CALCIUM 9.3 mg/dL (8.4-10.2); CREATININE, serum 0.64 (0.52-1.25); POTASSIUM 3.6 mmol/L (3.4-5.0); TOTAL PROTEIN 7.6 gm/dL (6.4-8.2)
[2019-05-05 16:37] VITALS: BP 101/56; PULSE 75; TEMP 98.2
== END 2019-07-26 | disposition home or self-care (01) ==
LOC: EUO
PROVIDERS: Internal Medicine Gastroenterology
DX: K51.90 Ulcerative colitis, unspecified, without complications (principal); Z79.899 Other long term (current) drug therapy
CPT/HCPCS: J1200; J2920; J3380; J7050

== ENCOUNTER 2019-08-30 14:13 | Outpatient (CLI) | payer MEDICAID ==
[~2019-08-30] VITALS: Ht 160 cm; Wt 75.7 kg
[2019-08-30 14:55] LABS: HEMATOCRIT 41.4 % (37.0-47.0); MEAN CELL VOLUME 89 fl (80.0-100.0); MEAN CORPUSCULAR HEMOGLOBIN 30 pg (27.0-31.0); MEAN CORPUSCULAR HGB CONC 34 g/dl (33.0-37.0); MEAN PLATELET VOLUME 11.5 fl (7.4-10.4); PLATELET COUNT 268 K/mm3 (130-400); RED BLOOD COUNT 4.68 M/mm3 (4.10-5.30); REDCELL DISTRIBUTION WIDTH-CV 12.3 % (11.5-14.5)
[2019-08-30 15:15] LABS: ALBUMIN 4.4 gm/dL (3.5-5.0); BILIRUBIN,TOTAL 0.3 mg/dL (0.0-1.0); CREATININE, serum 0.46 (0.52-1.25); POTASSIUM 3.7 mmol/L (3.4-5.0); TOTAL PROTEIN 7.6 gm/dL (6.4-8.2)
[2019-08-30 16:34] VITALS: BP 100/654; PULSE 62; TEMP 98.4
--- NOTE | 2019-08-30 17:04 | NUR ---
report to Eldon Wood.
== END 2019-09-27 10:53 | disposition home or self-care (01) ==
LOC: EUO 14:13
PROVIDERS: Internal Medicine Gastroenterology
DX: K51.90 Ulcerative colitis, unspecified, without complications (principal); Z79.899 Other long term (current) drug therapy
CPT/HCPCS: J1200; J2920; J3380; J7050

== ENCOUNTER 2019-10-25 14:32 | Outpatient (CLI) | payer MEDICAID ==
[2019-10-25 14:53] VITALS: BP 102/68; PULSE 71; TEMP 99.2
[2019-10-25 14:54] LABS: HEMATOCRIT 41.2 % (37.0-47.0); MEAN CELL VOLUME 89 fl (80.0-100.0); MEAN CORPUSCULAR HEMOGLOBIN 30 pg (27.0-31.0); MEAN CORPUSCULAR HGB CONC 34 g/dl (33.0-37.0); MEAN PLATELET VOLUME 11.1 fl (7.4-10.4); PLATELET COUNT 237 K/mm3 (130-400); RED BLOOD COUNT 4.61 M/mm3 (4.10-5.30); REDCELL DISTRIBUTION WIDTH-CV 12.1 % (11.5-14.5)
[2019-10-25 15:08] LABS: ALBUMIN 4.3 gm/dL (3.5-5.0); BILIRUBIN,TOTAL 0.4 mg/dL (0.0-1.0); CALCIUM 8.9 mg/dL (8.4-10.2); CREATININE, serum 0.62 (0.52-1.25); POTASSIUM 3.4 mmol/L (3.4-5.0); TOTAL PROTEIN 7.7 gm/dL (6.4-8.2)
[2019-10-25 15:36] VITALS: BP 103/68; PULSE 63
[2019-10-25 15:47] VITALS: BP 101/66; PULSE 64
[2019-10-25 15:57] VITALS: BP 107/71; PULSE 59
[2019-10-25 16:06] VITALS: BP 102/66; PULSE 59; TEMP 98.7
== END 2019-10-25 17:01 | disposition home or self-care (01) ==
LOC: EUO 14:32
PROVIDERS: Internal Medicine Gastroenterology
DX: K51.90 Ulcerative colitis, unspecified, without complications (principal); Z79.899 Other long term (current) drug therapy
CPT/HCPCS: J1200; J2920; J3380; J7050

== ENCOUNTER 2019-12-31 11:23 | Outpatient (CLI) | payer MEDICAID ==
[~2019-12-31] VITALS: Ht 160 cm; Wt 75.0 kg
[2019-12-31 11:49] LABS: HEMATOCRIT 41.1 % (37.0-47.0); HEMOGLOBIN 14.1 g/dl (12.5-16.0); MEAN CELL VOLUME 90 fl (80.0-100.0); MEAN CORPUSCULAR HEMOGLOBIN 31 pg (27.0-31.0); MEAN CORPUSCULAR HGB CONC 34 g/dl (33.0-37.0); MEAN PLATELET VOLUME 11.3 fl (7.4-10.4); PLATELET COUNT 270 K/mm3 (130-400); RED BLOOD COUNT 4.58 M/mm3 (4.10-5.30); REDCELL DISTRIBUTION WIDTH-CV 11.9 % (11.5-14.5)
[2019-12-31 12:02] LABS: ALBUMIN 4.4 gm/dL (3.5-5.0); BILIRUBIN,TOTAL 0.5 mg/dL (0.0-1.0); CALCIUM 9.5 mg/dL (8.4-10.2); CREATININE, serum 0.6 (0.52-1.25); POTASSIUM 4.4 mmol/L (3.4-5.0); TOTAL PROTEIN 7.6 gm/dL (6.4-8.2)
[2019-12-31 12:49] VITALS: BP 100/58; PULSE 68; TEMP 98.5
[2019-12-31 13:00] VITALS: BP 101/65; PULSE 57
[2019-12-31 13:10] VITALS: BP 107/66; PULSE 51
[2019-12-31 13:20] VITALS: BP 103/66; PULSE 57
--- NOTE | 2019-12-31 13:41 | NUR ---
PT TOLERATED INFUSION WELL. I CALLED AND SPOKE TO PT AFTER SHE LEFT, NOTIFYING HER OF NEXT APPOINTMENT DATE/TIME OF 02/25/20 AT 1300.
== END 2019-12-31 13:44 | disposition home or self-care (01) ==
LOC: EUO 11:23
PROVIDERS: Internal Medicine Gastroenterology
DX: K51.90 Ulcerative colitis, unspecified, without complications (principal); Z79.899 Other long term (current) drug therapy
CPT/HCPCS: J1200; J2920; J3380; J7050

== ENCOUNTER 2020-02-25 13:09 | Outpatient (CLI) | payer MEDICAID ==
[~2020-02-25] VITALS: Ht 160 cm; Wt 78.3 kg
[2020-02-25 13:35] LABS: HEMATOCRIT 40.3 % (37.0-47.0); HEMOGLOBIN 13.9 g/dl (12.5-16.0); MEAN CELL VOLUME 89 fl (80.0-100.0); MEAN CORPUSCULAR HEMOGLOBIN 31 pg (27.0-31.0); MEAN CORPUSCULAR HGB CONC 35 g/dl (33.0-37.0); MEAN PLATELET VOLUME 10.9 fl (7.4-10.4); PLATELET COUNT 256 K/mm3 (130-400); RED BLOOD COUNT 4.51 M/mm3 (4.10-5.30); REDCELL DISTRIBUTION WIDTH-CV 11.9 % (11.5-14.5)
[2020-02-25 13:48] LABS: ALBUMIN 4.6 gm/dL (3.5-5.0); BILIRUBIN,TOTAL 0.6 mg/dL (0.0-1.0); CALCIUM 9.3 mg/dL (8.4-10.2); CREATININE, serum 0.56 (0.52-1.25); POTASSIUM 3.4 mmol/L (3.4-5.0); TOTAL PROTEIN 7.7 gm/dL (6.4-8.2)
[2020-02-25 14:01] VITALS: BP 97/65; PULSE 74; TEMP 98.7
[2020-02-25 14:50] VITALS: BP 104/68; PULSE 60
[2020-02-25 15:00] VITALS: BP 108/73; PULSE 62
[2020-02-25 15:10] VITALS: BP 102/69; PULSE 64; TEMP 98.8
--- NOTE | 2020-02-25 15:24 | NUR ---
Pt tolerates infusion without issue. IV DC'd with catheter intact. Site wrapped with coban. Pt ambulates from dept with steady gait.
== END 2020-02-25 15:27 | disposition home or self-care (01) ==
LOC: EUO 13:09
PROVIDERS: Internal Medicine Gastroenterology
DX: K51.90 Ulcerative colitis, unspecified, without complications (principal); Z79.899 Other long term (current) drug therapy
CPT/HCPCS: J1200; J2920; J3380; J7050

== ENCOUNTER 2020-04-21 13:10 | Outpatient (CLI) | payer MEDICAID ==
[~2020-04-21] VITALS: Ht 160 cm; Wt 78.2 kg
[2020-04-21 14:00] LABS: HEMATOCRIT 41.3 % (37.0-47.0); HEMOGLOBIN 14.1 g/dl (12.5-16.0); MEAN CELL VOLUME 90 fl (80.0-100.0); MEAN CORPUSCULAR HEMOGLOBIN 31 pg (27.0-31.0); MEAN CORPUSCULAR HGB CONC 34 g/dl (33.0-37.0); MEAN PLATELET VOLUME 11.1 fl (7.4-10.4); PLATELET COUNT 271 K/mm3 (130-400); RED BLOOD COUNT 4.57 M/mm3 (4.10-5.30); REDCELL DISTRIBUTION WIDTH-CV 11.7 % (11.5-14.5)
[2020-04-21 14:09] LABS: ALBUMIN 4.3 gm/dL (3.5-5.0); BILIRUBIN,TOTAL 0.6 mg/dL (0.0-1.0); CALCIUM 9.1 mg/dL (8.4-10.2); CREATININE, serum 0.59 (0.52-1.25); POTASSIUM 3.8 mmol/L (3.4-5.0); TOTAL PROTEIN 7.3 gm/dL (6.4-8.2)
--- NOTE | 2020-04-21 16:30 | NUR ---
Pt tolerated infusion well, she remained pwd and without complaint throughout. Unfortunately pt's vital signs were not recorded, however pt's condition remained stable throughout. Appointment was made and pt was given appointment card for next infusion.
== END 2020-04-21 16:20 | disposition home or self-care (01) ==
LOC: EUO 13:10
PROVIDERS: Internal Medicine Gastroenterology
DX: K51.90 Ulcerative colitis, unspecified, without complications (principal); Z79.899 Other long term (current) drug therapy
CPT/HCPCS: J1200; J2920; J3380; J7050

== ENCOUNTER 2020-06-16 13:15 | Outpatient (CLI) | payer MEDICAID ==
[~2020-06-16] VITALS: Ht 160 cm; Wt 81.0 kg
[2020-06-16 13:51] LABS: HEMATOCRIT 43.8 % (37.0-47.0); HEMOGLOBIN 14.7 g/dl (12.5-16.0); MEAN CELL VOLUME 91 fl (80.0-100.0); MEAN CORPUSCULAR HEMOGLOBIN 31 pg (27.0-31.0); MEAN CORPUSCULAR HGB CONC 34 g/dl (33.0-37.0); MEAN PLATELET VOLUME 11.2 fl (7.4-10.4); PLATELET COUNT 295 K/mm3 (130-400); REDCELL DISTRIBUTION WIDTH-CV 11.8 % (11.5-14.5)
[2020-06-16 14:05] LABS: ALBUMIN 4.3 gm/dL (3.5-5.0); BILIRUBIN,TOTAL 0.5 mg/dL (0.0-1.0); CALCIUM 8.9 mg/dL (8.4-10.2); CREATININE, serum 0.72 (0.52-1.25); POTASSIUM 3.7 mmol/L (3.4-5.0); TOTAL PROTEIN 7.4 gm/dL (6.4-8.2)
[2020-06-16 14:51] VITALS: BP 96/65; PULSE 76; TEMP 98
== END 2020-06-16 19:28 | disposition home or self-care (01) ==
LOC: EUO
PROVIDERS: Internal Medicine Gastroenterology
DX: K51.90 Ulcerative colitis, unspecified, without complications (principal); Z79.899 Other long term (current) drug therapy
CPT/HCPCS: J1200; J2930; J3380; J7050

== ENCOUNTER 2020-08-11 13:09 | Outpatient (CLI) | payer MEDICAID ==
[~2020-08-11] VITALS: Ht 160 cm; Wt 79.6 kg
[2020-08-11 14:08] LABS: HEMATOCRIT 40.7 % (37.0-47.0); HEMOGLOBIN 14.2 g/dl (12.5-16.0); MEAN CELL VOLUME 87 fl (80.0-100.0); MEAN CORPUSCULAR HEMOGLOBIN 31 pg (27.0-31.0); MEAN CORPUSCULAR HGB CONC 35 g/dl (33.0-37.0); MEAN PLATELET VOLUME 11.5 fl (7.4-10.4); PLATELET COUNT 268 K/mm3 (130-400); RED BLOOD COUNT 4.66 M/mm3 (4.10-5.30); REDCELL DISTRIBUTION WIDTH-CV 11.9 % (11.5-14.5)
[2020-08-11 14:22] LABS: ALBUMIN 4.3 gm/dL (3.5-5.0); BILIRUBIN,TOTAL 0.3 mg/dL (0.0-1.0); CALCIUM 9.2 mg/dL (8.4-10.2); CREATININE, serum 0.46 (0.52-1.25); POTASSIUM 3.5 mmol/L (3.4-5.0); TOTAL PROTEIN 7.6 gm/dL (6.4-8.2)
[2020-08-11 15:13] VITALS: BP 118/83; PULSE 70; TEMP 98.2
== END 2020-08-11 15:52 | disposition home or self-care (01) ==
LOC: EUO 13:09
PROVIDERS: Internal Medicine Gastroenterology
DX: K51.90 Ulcerative colitis, unspecified, without complications (principal); Z79.899 Other long term (current) drug therapy
CPT/HCPCS: J1200; J2930; J3380; J7050

== ENCOUNTER 2020-10-20 14:00 | Outpatient (CLI) | payer MEDICAID ==
[~2020-10-20] VITALS: Ht 160 cm; Wt 76.0 kg
[2020-10-20 14:22] LABS: BASO # 0.1 (0.0-0.2); BASO % 0.7 % (0.0-2.0); EOS # 0.2 (0.0-0.7); EOS % 3.1 % (0-4.0); GRAN # 4.7 (1.4-6.5); GRAN % 62.7 % (42.2-75.2); HEMATOCRIT 39.5 % (37.0-47.0); HEMOGLOBIN 13.8 g/dl (12.5-16.0); LYMPH # 1.9 (1.2-3.4); MEAN CELL VOLUME 89 fl (80.0-100.0); MEAN CORPUSCULAR HEMOGLOBIN 31 pg (27.0-31.0); MEAN CORPUSCULAR HGB CONC 35 g/dl (33.0-37.0); MEAN PLATELET VOLUME 11.8 fl (7.4-10.4); MONO # 0.5 (0.1-0.6); MONO % 7.2 % (1.7-9.3); PLATELET COUNT 262 K/mm3 (130-400); RED BLOOD COUNT 4.42 M/mm3 (4.10-5.30); REDCELL DISTRIBUTION WIDTH-CV 11.7 % (11.5-14.5)
[2020-10-20 14:31] LABS: ALBUMIN 4.1 gm/dL (3.5-5.0); BILIRUBIN,TOTAL 0.2 mg/dL (0.0-1.0); CREATININE, serum 0.49 (0.52-1.25); POTASSIUM 3.6 mmol/L (3.4-5.0); TOTAL PROTEIN 7.2 gm/dL (6.4-8.2)
[2020-10-20 15:30] VITALS: BP 99/64; PULSE 68; TEMP 98.5
== END 2020-10-20 16:15 | disposition home or self-care (01) ==
LOC: EUO 14:00
PROVIDERS: Internal Medicine Gastroenterology
DX: K50.80 Crohn's disease of both small and large intestine without complications (principal)
CPT/HCPCS: J1200; J2930; J3380; J7050

== ENCOUNTER 2020-12-20 15:05 | Outpatient (CLI) | payer MEDICAID ==
[~2020-12-20] VITALS: Ht 160 cm; Wt 72.3 kg
[2020-12-20 15:00] VITALS: BP 113/67; PULSE 52; TEMP 98
== END 2020-12-20 15:40 | disposition home or self-care (01) ==
LOC: EUO 15:05
DX: K50.80 Crohn's disease of both small and large intestine without complications (principal); Z79.899 Other long term (current) drug therapy
CPT/HCPCS: J1200; J2930; J3380; J7050

== ENCOUNTER 2021-02-04 13:34 | Inpatient (IN) | payer MEDICAID ==
[~2021-02-04] VITALS: Ht 160 cm; Wt 71.5 kg
[2021-02-04 14:50] LABS: BASO # 0.1 K/mm3 (0.0-0.2); BASO % 0.4 % (0.0-2.0); GRAN # 19.1 K/mm3 (1.4-6.5); GRAN % 89.7 % (42.2-75.2); HEMATOCRIT 40.9 % (37.0-47.0); HEMOGLOBIN 14.3 g/dl (12.5-16.0); LYMPH # 1.1 K/mm3 (1.2-3.4); LYMPH % 5.3 % (20.0-51.0); MEAN CELL VOLUME 89 fl (80.0-100.0); MEAN CORPUSCULAR HEMOGLOBIN 31 pg (27.0-31.0); MEAN CORPUSCULAR HGB CONC 35 g/dl (33.0-37.0); MEAN PLATELET VOLUME 11.6 fl (7.4-10.4); MONO # 0.8 K/mm3 (0.1-0.6); MONO % 3.8 % (1.7-9.3); PLATELET COUNT 303 K/mm3 (130-400); RED BLOOD COUNT 4.61 M/mm3 (4.10-5.30)
[2021-02-04 15:08] LABS: ALANINE AMINOTRANSFERASE 19 U/L (0-55); ALBUMIN 4.5 gm/dL (3.5-5.0); ALKALINE PHOSPHATASE 98 U/L (40-150); ANION GAP 14 mmol/L (7-16); AST,SGOT 18 U/L (5-34); BILIRUBIN,TOTAL 0.5 mg/dL (0.2-1.2); BLOOD UREA NITROGEN 8 mg/dL (7-19); CALCIUM 9.6 mg/dL (8.4-10.2); CARBON DIOXIDE 18 mmol/L (22-29); CHLORIDE 110 mmol/L (98-107); CREATININE, serum 0.69 mg/dL (0.57-1.11); GLUCOSE 137 mg/dL (70-99); LIPASE < 10 U/L (8-78); POTASSIUM 3.6 mmol/L (3.5-4.5); SODIUM 142 mmol/L (136-145); TOTAL PROTEIN 7.7 gm/dL (6.2-8.1)
[2021-02-04 15:46] LABS: COLLECTION METHOD CLEAN CATCH
[2021-02-04 15:57] LABS: MUCOUS Present /lpf; PH 5 (5-8); URINE APPEARANCE Cloudy; URINE BACTERIA None Seen /hpf; URINE BILIRUBIN Negative (NEGATIVE); URINE BLOOD 3+ (NEGATIVE); URINE COLOR Yellow; URINE GLUCOSE Negative (NEGATIVE); URINE KETONE 2+ (NEGATIVE); URINE LEUKOCYTE ESTERASE Negative (NEGATIVE); URINE NITRATE Negative (NEGATIVE); URINE PROTEIN(semi-quant) 1+ (NEGATIVE); URINE UROBILINOGEN Negative (NEGATIVE)
[2021-02-04] MEDS ORDERED: PAMELOR 25MG25 MG PO (18:40)
[2021-02-04] MEDS ORDERED: BUSPAR5 MG PO (18:40)
--- NOTE | 2021-02-04 19:35 | NUR ---
ARRIVED TO ROOM 347.
[2021-02-04 19:53] LABS: TRICYCLIC ANTIDEPRESS URINE NEGATIVE
--- NOTE | 2021-02-04 20:30 | NUR ---
ADMISSION QUESTIONS COMPLETED. PT IS ALERT AND ORIENTED X4. DR MARTINEZ HERE TO SEE PT. DENIES DIARRHEA, DID ADVISE OF NEED FOR STOOL SAMPLE, PT WILL LET STAFF KNOW. TAKING WATER AND HS MEDS WITHOUT VOMITING.
[2021-02-04 20:36] VITALS: BP 105/64; PULSE 50; TEMP 98.1
--- NOTE | 2021-02-04 21:06 | NUR ---
PT REPORTS PAIN TO UPPER ABD/CHEST. MEDICATED WITH MORPHINE 2MG IVP AND ZOFRAN 4MG IVP AT THIS TIME. IVF TO RT AC INFUSING WITHOUT PROBLEM. EDUCATED ON IV POTASSIUM.
--- NOTE | 2021-02-04 22:00 | NUR ---
PT REPORTS BURNING OF IV SITE WITH POTASSIUM, ICE PACK PROVIDED.
[2021-02-05] VITALS (15 sets, daily range): BP systolic 93–112; BP diastolic 42–67; PULSE 43–58; TEMP 97.9–98.4
--- NOTE | 2021-02-05 00:47 | NUR ---
COMPLAINS OF PAIN TO UPPER ABD. IS NPO FOR EGD AT 1000. MORPHINE 2MG IVP GIVEN.
--- NOTE | 2021-02-05 05:45 | NUR ---
PT MEDICATED WITH MORPHINE 2MG IVP FOR ABD PAIN. IV ANTIBIOTICS INFUSING WITHOUT PROBLEM.
[2021-02-05 06:46] LABS: BASO % 0.2 % (0.0-2.0); GRAN # 16.2 K/mm3 (1.4-6.5); GRAN % 87.8 % (42.2-75.2); HEMATOCRIT 37.3 % (37.0-47.0); HEMOGLOBIN 12.5 g/dl (12.5-16.0); LYMPH # 1.3 K/mm3 (1.2-3.4); LYMPH % 6.9 % (20.0-51.0); MEAN CELL VOLUME 93 fl (80.0-100.0); MEAN CORPUSCULAR HEMOGLOBIN 31 pg (27.0-31.0); MEAN CORPUSCULAR HGB CONC 34 g/dl (33.0-37.0); MEAN PLATELET VOLUME 11.8 fl (7.4-10.4); MONO # 0.8 K/mm3 (0.1-0.6); MONO % 4.2 % (1.7-9.3); PLATELET COUNT 263 K/mm3 (130-400); RED BLOOD COUNT 4.01 M/mm3 (4.10-5.30); REDCELL DISTRIBUTION WIDTH-CV 12.2 % (11.5-14.5)
[2021-02-05 07:09] LABS: CALCIUM 9.2 mg/dL (8.4-10.2); CREATININE, serum 0.59 mg/dL (0.57-1.11)
--- NOTE | 2021-02-05 09:00 | NUR ---
Patient called out complains of chest pain/pressure, states same as previous night . States she was given a couple of doses of morphine then pain subsided. Notified Hospitalist, Sayda ALAMO. New order for EKG. VSS.
--- NOTE | 2021-02-05 09:54 | NUR ---
Patient to Endo by bed.
--- NOTE | 2021-02-05 10:45 | NUR ---
Patient up from Endo at 1135, Post op VSS, post op fluids infusing at this time. Patient continues to complain of chest pain /, morphine given per orders. Denies further needs at this time.
--- NOTE | 2021-02-05 13:12 | NUR ---
Initial visit; Patient thanked Contact Person for looking in on her and offering God's blessings.
--- NOTE | 2021-02-05 18:33 | NUR ---
Patient doing well post EGD. Tolerating clear liquid diet. Fluids and antibiotics infusing per orders. Denies needs at this time. Will report off to manager shift.
--- NOTE | 2021-02-05 23:14 | NUR ---
Patient alert and oriented. Patient reports moderate pain to her abdomen area. Patient denies N/V. Patient tolerating clear liquid diet. PRN morphine given per JUN. All scheduled meds given per JUN. Call light in reach. Will continue to monitor.
[2021-02-06 03:31] VITALS: BP 99/59; PULSE 47; TEMP 98.1
--- NOTE | 2021-02-06 06:09 | NUR ---
Patient continues to have moderate abdominal pain radiating to chest area over the night. PRN morphine given per patient request for pain. No N/V or diarrhea noted. Call light in reach. Will give report to day shift nurse.
[2021-02-06 06:47] LABS: BASO % 0.3 % (0.0-2.0); EOS % 0.3 % (0-4.0); GRAN # 8.2 K/mm3 (1.4-6.5); GRAN % 68.5 % (42.2-75.2); HEMATOCRIT 37.4 % (37.0-47.0); HEMOGLOBIN 12.6 g/dl (12.5-16.0); LYMPH # 2.5 K/mm3 (1.2-3.4); LYMPH % 21.2 % (20.0-51.0); MEAN CELL VOLUME 91 fl (80.0-100.0); MEAN CORPUSCULAR HEMOGLOBIN 31 pg (27.0-31.0); MEAN CORPUSCULAR HGB CONC 34 g/dl (33.0-37.0); MEAN PLATELET VOLUME 12.3 fl (7.4-10.4); MONO # 1.1 K/mm3 (0.1-0.6); MONO % 9.1 % (1.7-9.3); PLATELET COUNT 252 K/mm3 (130-400); RED BLOOD COUNT 4.12 M/mm3 (4.10-5.30); REDCELL DISTRIBUTION WIDTH-CV 12.4 % (11.5-14.5)
[2021-02-06 07:07] LABS: CALCIUM 9.2 mg/dL (8.4-10.2); CREATININE, serum 0.66 mg/dL (0.57-1.11); POTASSIUM 4.2 mmol/L (3.5-4.5)
[2021-02-06 07:40] VITALS: BP 103/59; PULSE 51; TEMP 97.9
--- NOTE | 2021-02-06 08:30 | NUR ---
Patient in bed resting. Alert and oriented x 3. Assessment complete. IV fluids infusing to left wrist IV. Patient states mild pain to lower abdomen, denies need for pain medication at this time. Denies further needs at this time.
--- NOTE | 2021-02-06 10:40 | NUR ---
Patient complaining of chest pain, upon entering room patient sitting up in bed. Family at bedside. States pain started after eating applesauce. VSS 117/74, HR 53, O2 100 on RA. Patient then states that she is having numbness and tingling to left hand up to her wrist. Oxycodone given for pain. Notified hospitalist, Elaina ALAMO. No further needs at this time.
[2021-02-06 11:17] VITALS: BP 109/59; PULSE 76; TEMP 98.3
--- NOTE | 2021-02-06 11:34 | NUR ---
SW met with patient at bedside to discuss discharge plan. Patient is single and lives in [place] with her BF; she states she is fully independent and works f/t. She has no DME's; PCP is Jane Blackburn and she obtains her prescriptions from [facility] in [place] with no difficulty. GI consulted with patient yesterday and has discharged patient's IV antibiotics, switching her to oral antibiotics. Patient's mother is listed as her contact - Kya Llanes and her number is [phone]. Patient states she does not have an MPOA and she is not interested in one. SW will continue to follow. D/C Plan: Home
[2021-02-06] MEDS ORDERED: PROTONIX 40MG T40 MG PO (15:03)
[2021-02-06] MEDS ORDERED: CARAFATE S1 GM/10 ML PO (15:04)
[2021-02-06] MEDS ORDERED: PREDNISONE10 MG PO (15:07)
[2021-02-06] MEDS ORDERED: CIPRO 500MG TA500 MG PO (15:08)
[2021-02-06] MEDS ORDERED: FLAGYL500 MG PO (15:08)
[2021-02-06] MEDS ORDERED: ROXICODONE 55 MG/TAB PO (15:11)
[2021-02-06] MEDS ORDERED: ZOFRAN ODT4 MG PO (15:18)
--- NOTE | 2021-02-06 16:30 | NUR ---
Discharge education provided to patient. Educated on when to call provider and scheduling follow up appointment. Educated on medication changes. Patient educated on all new medications. All questions answered. INT to LW discontinued, catheter tip intact. Denies further needs at this time.
== END 2021-02-06 16:30 | disposition home or self-care (01) | DRG 872 ==
LOC: COL.ER 13:34 → SURG 18:11
PROVIDERS: Internal Medicine Gastroenterology; Nurse Practitioner Family; Physician Assistant; ADMIT Family Medicine
PROC: 0DB78ZX Excision of Stomach, Pylorus, Via Natural or Artificial Opening Endoscopic, Diagnostic (ICD-10-PCS; principal; 2021-02-05 10:00)
DX: A41.9 Sepsis, unspecified organism (principal); K50.00 Crohn's disease of small intestine without complications; E87.2 Acidosis; F41.9 Anxiety disorder, unspecified; F32.A Depression, unspecified; K52.9 Noninfective gastroenteritis and colitis, unspecified; R73.9 Hyperglycemia, unspecified; K29.70 Gastritis, unspecified, without bleeding
CPT/HCPCS: 99223-AI; 99232-AI; 99239; C9113; J0744; J2270; J2405; J2704; J2920; J3480; J7030; J7120; Q9967

== ENCOUNTER 2021-02-14 15:27 | Outpatient (CLI) | payer MEDICAID ==
[2021-02-14 15:06] LABS: HEMATOCRIT 40.8 % (37.0-47.0); HEMOGLOBIN 14.1 g/dl (12.5-16.0); MEAN CELL VOLUME 89 fl (80.0-100.0); MEAN CORPUSCULAR HEMOGLOBIN 31 pg (27.0-31.0); MEAN CORPUSCULAR HGB CONC 35 g/dl (33.0-37.0); MEAN PLATELET VOLUME 11.4 fl (7.4-10.4); PLATELET COUNT 271 K/mm3 (130-400); RED BLOOD COUNT 4.57 M/mm3 (4.10-5.30)
[2021-02-14 15:27] LABS: BILIRUBIN,TOTAL 0.4 mg/dL (0.2-1.2); CALCIUM 9.3 mg/dL (8.4-10.2); CREATININE, serum 0.66 mg/dL (0.57-1.11); POTASSIUM 4.1 mmol/L (3.5-4.5); TOTAL PROTEIN 7.1 gm/dL (6.2-8.1)
[~2021-02-14 15:27] MED LIST changes: +BUSPAR5 MG PO; +CARAFATE S1 GM/10 ML PO; +PAMELOR 25MG25 MG PO; +PROTONIX 40MG T40 MG PO; +ROXICODONE 55 MG/TAB PO; +ZOFRAN ODT4 MG PO
[2021-02-14 15:38] VITALS: BP 93/57; PULSE 74; TEMP 98.4
== END 2021-02-14 20:00 | disposition home or self-care (01) ==
LOC: EUO 15:27
PROVIDERS: Internal Medicine Gastroenterology
DX: K50.80 Crohn's disease of both small and large intestine without complications (principal)
CPT/HCPCS: J1200; J2920; J3380; J7050

== ENCOUNTER 2021-04-23 15:30 | Outpatient (CLI) | payer MEDICAID ==
--- NOTE | 2021-04-17 16:20 | NUR ---
PT WAS A NO CALL , NO SHOW
[~2021-04-23] VITALS: Ht 160 cm; Wt 67.7 kg
[2021-04-23 15:55] LABS: BASO % 0.3 % (0.0-2.0); EOS # 0.2 K/mm3 (0.0-0.7); GRAN # 5.9 K/mm3 (1.4-6.5); GRAN % 66.5 % (42.2-75.2); HEMATOCRIT 39.4 % (37.0-47.0); HEMOGLOBIN 13.3 g/dl (12.5-16.0); MEAN CELL VOLUME 90 fl (80.0-100.0); MEAN CORPUSCULAR HEMOGLOBIN 30 pg (27-31); MEAN CORPUSCULAR HGB CONC 34 g/dl (33.0-37.0); MEAN PLATELET VOLUME 11.5 fl (7.4-10.4); MONO # 0.7 K/mm3 (0.1-0.6); MONO % 7.9 % (1.7-9.3); PLATELET COUNT 283 K/mm3 (130-400); RED BLOOD COUNT 4.39 M/mm3 (4.10-5.30); REDCELL DISTRIBUTION WIDTH-CV 11.9 % (11.5-14.5)
[2021-04-23 16:27] VITALS: BP 104/66; PULSE 62; TEMP 98.5
[2021-04-23 16:33] LABS: ALBUMIN 4.1 gm/dL (3.5-5.0); BILIRUBIN,TOTAL 0.3 mg/dL (0.2-1.2); CALCIUM 8.9 mg/dL (8.4-10.2); CREATININE, serum 0.65 mg/dL (0.57-1.11); POTASSIUM 3.8 mmol/L (3.5-4.5); TOTAL PROTEIN 7.4 gm/dL (6.2-8.1)
[2021-04-23 17:13] VITALS: BP 95/64; PULSE 58
== END 2021-04-23 17:17 | disposition home or self-care (01) ==
LOC: EUO 15:30
PROVIDERS: Internal Medicine Gastroenterology
DX: K50.80 Crohn's disease of both small and large intestine without complications (principal); Z79.899 Other long term (current) drug therapy
CPT/HCPCS: J1200; J2920; J3380; J7050

== ENCOUNTER 2021-06-19 14:11 | Outpatient (CLI) | payer MEDICAID ==
[2021-06-19 14:30] LABS: BASO # 0.1 K/mm3 (0.0-0.2); BASO % 0.5 % (0.0-2.0); EOS # 0.2 K/mm3 (0.0-0.7); EOS % 1.6 % (0.0-4.0); GRAN # 8.4 K/mm3 (1.4-6.5); GRAN % 70.2 % (42.2-75.2); HEMOGLOBIN 13.6 g/dl (12.5-16.0); LYMPH # 2.5 K/mm3 (1.2-3.4); LYMPH % 21.1 % (20.0-51.0); MEAN CELL VOLUME 88 fl (80.0-100.0); MEAN CORPUSCULAR HEMOGLOBIN 30 pg (27-31); MEAN CORPUSCULAR HGB CONC 34 g/dl (33.0-37.0); MEAN PLATELET VOLUME 11.6 fl (7.4-10.4); MONO # 0.8 K/mm3 (0.1-0.6); MONO % 6.3 % (1.7-9.3); PLATELET COUNT 277 K/mm3 (130-400); RED BLOOD COUNT 4.56 M/mm3 (4.10-5.30); REDCELL DISTRIBUTION WIDTH-CV 12.2 % (11.5-14.5)
[2021-06-19 14:54] LABS: ALBUMIN 4.4 gm/dL (3.5-5.0); BILIRUBIN,TOTAL 0.3 mg/dL (0.2-1.2); CREATININE, serum 0.67 mg/dL (0.57-1.11); POTASSIUM 3.6 mmol/L (3.5-4.5); TOTAL PROTEIN 7.5 gm/dL (6.2-8.1)
[2021-06-19 15:59] VITALS: BP 96/55; PULSE 70; TEMP 98.5
== END 2021-06-19 17:04 ==
LOC: EUO 14:11
PROVIDERS: Internal Medicine Gastroenterology
DX: K50.80 Crohn's disease of both small and large intestine without complications (principal)
CPT/HCPCS: J1200; J2920; J3380; J7050

== ENCOUNTER 2021-08-31 16:06 | Outpatient (CLI) | payer MEDICAID ==
[~2021-08-31] VITALS: Ht 160 cm; Wt 68.1 kg
[2021-08-31 15:23] LABS: BASO % 0.4 % (0.0-2.0); EOS # 0.2 K/mm3 (0.0-0.7); EOS % 2.4 % (0.0-4.0); GRAN # 6.6 K/mm3 (1.4-6.5); GRAN % 70.3 % (42.2-75.2); HEMATOCRIT 37.5 % (37.0-47.0); HEMOGLOBIN 13.2 g/dl (12.5-16.0); LYMPH % 21.1 % (20.0-51.0); MEAN CELL VOLUME 87 fl (80.0-100.0); MEAN CORPUSCULAR HEMOGLOBIN 31 pg (27-31); MEAN CORPUSCULAR HGB CONC 35 g/dl (33.0-37.0); MONO # 0.5 K/mm3 (0.1-0.6); MONO % 5.6 % (1.7-9.3); PLATELET COUNT 264 K/mm3 (130-400); RED BLOOD COUNT 4.29 M/mm3 (4.10-5.30)
[2021-08-31 15:41] LABS: ALBUMIN 4.1 gm/dL (3.5-5.0); BILIRUBIN,TOTAL 0.4 mg/dL (0.2-1.2); CALCIUM 8.9 mg/dL (8.4-10.2); CREATININE, serum 0.7 mg/dL (0.57-1.11); POTASSIUM 3.9 mmol/L (3.5-4.5); TOTAL PROTEIN 7.1 gm/dL (6.2-8.1)
[2021-08-31 16:25] VITALS: BP 100/63; PULSE 67; TEMP 98
== END 2021-08-31 17:05 | disposition home or self-care (01) ==
LOC: EUO 16:06
PROVIDERS: Internal Medicine Gastroenterology
DX: K50.80 Crohn's disease of both small and large intestine without complications (principal); Z79.899 Other long term (current) drug therapy
CPT/HCPCS: J1200; J2920; J3380; J7050

== ENCOUNTER 2021-10-26 15:07 | Outpatient (CLI) | payer MEDICAID ==
[2021-10-26 15:27] LABS: BASO % 0.3 % (0.0-2.0); EOS # 0.2 K/mm3 (0.0-0.7); EOS % 1.9 % (0.0-4.0); GRAN % 74.5 % (42.2-75.2); HEMATOCRIT 37.5 % (37.0-47.0); HEMOGLOBIN 13.5 g/dl (12.5-16.0); LYMPH # 1.8 K/mm3 (1.2-3.4); LYMPH % 15.3 % (20.0-51.0); MEAN CELL VOLUME 87 fl (80.0-100.0); MEAN CORPUSCULAR HEMOGLOBIN 31 pg (27-31); MEAN CORPUSCULAR HGB CONC 36 g/dl (33.0-37.0); MEAN PLATELET VOLUME 11.3 fl (7.4-10.4); MONO # 0.9 K/mm3 (0.1-0.6); MONO % 7.4 % (1.7-9.3); PLATELET COUNT 210 K/mm3 (130-400); REDCELL DISTRIBUTION WIDTH-CV 12.7 % (11.5-14.5)
[2021-10-26 15:50] LABS: ALBUMIN 3.7 gm/dL (3.5-5.0); BILIRUBIN,TOTAL 0.4 mg/dL (0.2-1.2); CALCIUM 8.9 mg/dL (8.4-10.2); CREATININE, serum 0.55 mg/dL (0.57-1.11); TOTAL PROTEIN 6.7 gm/dL (6.2-8.1)
[2021-10-26] MEDS ORDERED: ZOFRAN 4MG T4 MG/TAB PO (17:09)
[2021-10-26] MEDS ORDERED: PRENATAL PO (17:10)
[2021-10-26 17:12] VITALS: BP 88/48; PULSE 70; TEMP 98.8
== END 2021-10-26 18:00 | disposition home or self-care (01) ==
LOC: EUO 15:07
PROVIDERS: Internal Medicine Gastroenterology
DX: K50.80 Crohn's disease of both small and large intestine without complications (principal)
CPT/HCPCS: J1200; J2920; J3380; J7050

== ENCOUNTER → 2021-11-02 | Outpatient (CLI) | payer MEDICAID ==
[~2021-11-02] MED LIST changes: +PRENATAL PO
[2021-11-02 15:03] LABS: BASO # 0.1 K/mm3 (0.0-0.2); BASO % 0.3 % (0.0-2.0); EOS # 0.2 K/mm3 (0.0-0.7); EOS % 1.4 % (0.0-4.0); GRAN # 12.5 K/mm3 (1.4-6.5); GRAN % 77.6 % (42.2-75.2); HEMATOCRIT 37.7 % (37.0-47.0); HEMOGLOBIN 13.4 g/dl (12.5-16.0); LYMPH # 2.2 K/mm3 (1.2-3.4); LYMPH % 13.7 % (20.0-51.0); MEAN CELL VOLUME 89 fl (80.0-100.0); MEAN CORPUSCULAR HEMOGLOBIN 32 pg (27-31); MEAN CORPUSCULAR HGB CONC 36 g/dl (33.0-37.0); PLATELET COUNT 221 K/mm3 (130-400); RED BLOOD COUNT 4.24 M/mm3 (4.10-5.30); REDCELL DISTRIBUTION WIDTH-CV 12.8 % (11.5-14.5)
== END ==
LOC: COL.LAB 14:35
PROVIDERS: Physician Assistant
DX: D72.829 Elevated white blood cell count, unspecified (principal)

== ENCOUNTER 2021-12-21 12:55 | Outpatient (CLI) | payer MEDICAID ==
[~2021-12-21] VITALS: Ht 160 cm; Wt 71.9 kg
[2021-12-21 13:21] LABS: HEMOGLOBIN 12.3 g/dl (12.5-16.0); MEAN CELL VOLUME 91 fl (80.0-100.0); MEAN CORPUSCULAR HEMOGLOBIN 32 pg (27-31); MEAN CORPUSCULAR HGB CONC 35 g/dl (33.0-37.0); MEAN PLATELET VOLUME 11.4 fl (7.4-10.4); PLATELET COUNT 215 K/mm3 (130-400); RED BLOOD COUNT 3.83 M/mm3 (4.10-5.30); REDCELL DISTRIBUTION WIDTH-CV 12.9 % (11.5-14.5)
[2021-12-21 13:23] LABS: HEMATOCRIT 34.9 % (37.0-47.0)
[2021-12-21 13:45] LABS: ALBUMIN 3.4 gm/dL (3.5-5.0); BILIRUBIN,TOTAL 0.3 mg/dL (0.2-1.2); CALCIUM 8.9 mg/dL (8.4-10.2); CREATININE, serum 0.56 mg/dL (0.57-1.11); POTASSIUM 3.5 mmol/L (3.5-4.5); TOTAL PROTEIN 6.5 gm/dL (6.2-8.1)
[2021-12-21 13:47] LABS: BAND 3 % (0-10); LYMPHOCYTE 14 % (20.0-51.0); METAMYELOCYTE 1 % (0-0); NEUTROPHILS 79 % (42.0-75.2); PLATELET ESTIMATE NORMAL (NORMAL)
[2021-12-21 14:07] VITALS: BP 97/61; PULSE 80; TEMP 98.3
[2021-12-21] MEDS ORDERED: ASPIRIN E.C. 8181 MG PO (15:43)
== END 2021-12-21 15:44 | disposition home or self-care (01) ==
LOC: EUO 12:55
PROVIDERS: Internal Medicine Gastroenterology
DX: K50.80 Crohn's disease of both small and large intestine without complications (principal); Z79.899 Other long term (current) drug therapy
CPT/HCPCS: J1200; J2930; J3380; J7050

== ENCOUNTER 2022-02-15 08:30 | Outpatient (CLI) | payer MEDICAID ==
[~2022-02-15] VITALS: Ht 160 cm; Wt 79.3 kg
[~2022-02-15 08:30] MED LIST changes: +ASPIRIN E.C. 8181 MG PO
[2022-02-15 08:54] LABS: HEMOGLOBIN 12.2 g/dl (12.5-16.0); MEAN CELL VOLUME 92 fl (80.0-100.0); MEAN CORPUSCULAR HEMOGLOBIN 32 pg (27-31); MEAN CORPUSCULAR HGB CONC 35 g/dl (33.0-37.0); MEAN PLATELET VOLUME 11.6 fl (7.4-10.4); PLATELET COUNT 183 K/mm3 (130-400); RED BLOOD COUNT 3.81 M/mm3 (4.10-5.30); REDCELL DISTRIBUTION WIDTH-CV 12.3 % (11.5-14.5)
[2022-02-15 09:13] LABS: ALBUMIN 3.1 gm/dL (3.5-5.0); BILIRUBIN,TOTAL 0.2 mg/dL (0.2-1.2); CALCIUM 8.6 mg/dL (8.4-10.2); CREATININE, serum 0.53 mg/dL (0.57-1.11); POTASSIUM 3.9 mmol/L (3.5-4.5); TOTAL PROTEIN 6.2 gm/dL (6.2-8.1)
[2022-02-15 09:31] LABS: BAND 7 % (0-10); BASOPHIL 1 % (0-2); LYMPHOCYTE 4 % (20.0-51.0); METAMYELOCYTE 3 % (0-0); NEUTROPHILS 80 % (42.0-75.2)
[2022-02-15 09:32] LABS: PLATELET ESTIMATE NORMAL (NORMAL)
== END 2022-02-15 11:00 | disposition home or self-care (01) ==
LOC: EUO 08:30
PROVIDERS: Internal Medicine Gastroenterology
DX: K50.80 Crohn's disease of both small and large intestine without complications (principal)
CPT/HCPCS: J1200; J2930; J3380; J7050

== ENCOUNTER 2022-06-07 14:46 | Outpatient (CLI) | payer MEDICAID ==
[~2022-06-07 14:46] MED LIST changes: +MOTRIN 800800 MG/TAB PO; +TYLENOL 500MG500 MG PO
[2022-06-07 15:11] LABS: BASO # 0.1 K/mm3 (0.0-0.2); BASO % 0.7 % (0.0-2.0); EOS # 0.4 K/mm3 (0.0-0.7); EOS % 3.7 % (0.0-4.0); GRAN # 6.2 K/mm3 (1.4-6.5); GRAN % 61.7 % (42.2-75.2); HEMATOCRIT 38.6 % (37.0-47.0); LYMPH # 2.7 K/mm3 (1.2-3.4); LYMPH % 27.1 % (20.0-51.0); MEAN CELL VOLUME 86 fl (80.0-100.0); MEAN CORPUSCULAR HEMOGLOBIN 29 pg (27-31); MEAN CORPUSCULAR HGB CONC 34 g/dl (33.0-37.0); MEAN PLATELET VOLUME 10.1 fl (7.4-10.4); MONO # 0.6 K/mm3 (0.1-0.6); MONO % 6.3 % (1.7-9.3); PLATELET COUNT 340 K/mm3 (130-400); RED BLOOD COUNT 4.48 M/mm3 (4.10-5.30); REDCELL DISTRIBUTION WIDTH-CV 12.1 % (11.5-14.5)
[2022-06-07 15:32] LABS: ALBUMIN 3.9 gm/dL (3.5-5.0); BILIRUBIN,TOTAL 0.2 mg/dL (0.2-1.2); CREATININE, serum 0.68 mg/dL (0.57-1.11); POTASSIUM 4.1 mmol/L (3.5-4.5)
[2022-06-07 15:54] VITALS: BP 105/59; PULSE 51; TEMP 97.6
== END 2022-06-07 18:13 | disposition home or self-care (01) ==
LOC: EUO 14:46
PROVIDERS: Internal Medicine Gastroenterology
DX: K50.80 Crohn's disease of both small and large intestine without complications (principal)
CPT/HCPCS: J1200; J2920; J3380; J7050

== ENCOUNTER 2023-06-22 22:08 | Emergency (ER) | payer MEDICAID ==
[~2023-06-22] VITALS: Ht 160 cm; Wt 75.0 kg
--- NOTE | 2023-06-22 21:15 | NUR ---
PATIENT ARRIVED TO UNIT VIA WHEELCHAIR WITH SPOUSE. PATIENT STATES SHE IS HAVING EPIGASTRIC PAIN AND ABDOMINAL PAIN. STATES SHE HASN'T BEEN ABLE TO KEEP FOOD OR FLUID DOWN SINCE 1030 THIS AM. DENIES LEAKING OF FLUID, VAGINAL BLEEDING OR CONTRACTIONS. STATES SHE HAS FELT GOOD MOVEMENT THROUGHOUT THE DAY.
[2023-06-22 21:20] VITALS: BP 108/64; PULSE 78; TEMP 98.5
--- NOTE | 2023-06-22 22:05 | NUR ---
Pt transferred to ER room 4 by wheelchair with belongings. Lactated ringers infusing to gravity in 18G IV in left wrist.
[~2023-06-22 22:08] MED LIST changes: +LR 1,000 ML IV PRN; +Ondansetron 4 MG/2 ML VIAL IV ONE; +PRENATAL TABLET PO
[2023-06-22 22:40] VITALS: TEMP 98
[2023-06-22 23:13] LABS: HEMATOCRIT 38.1 % (37.0-47.0); MEAN CELL VOLUME 92 fl (80.0-100.0); MEAN CORPUSCULAR HEMOGLOBIN 31 pg (27-31); MEAN CORPUSCULAR HGB CONC 34 g/dl (33.0-37.0); MEAN PLATELET VOLUME 11.8 fl (7.4-10.4); PLATELET COUNT 196 K/mm3 (130-400); RED BLOOD COUNT 4.15 M/mm3 (4.10-5.30); REDCELL DISTRIBUTION WIDTH-CV 12.9 % (11.5-14.5)
[2023-06-22] MEDS ORDERED: D5NS 1,000 ML IV SCH (23:15)
[2023-06-22] MEDS ORDERED: Famotidine 20 MG TAB PO ONE (23:15)
[2023-06-22 23:28] LABS: ALBUMIN 3.1 gm/dL (3.5-5.0); BILIRUBIN,TOTAL 0.2 mg/dL (0.2-1.2); C-REACTIVE PROTEIN 0.32 mg/dL (0.00-0.50); CALCIUM 8.3 mg/dL (8.4-10.2); CREATININE, serum 0.5 mg/dL (0.57-1.11); POTASSIUM 3.3 mmol/L (3.5-4.5)
[2023-06-22 23:55] LABS: COLLECTION METHOD CLEAN CATCH
[2023-06-23 00:22] LABS: BAND 5 % (0-10); LYMPHOCYTE 4 % (20.0-51.0); NEUTROPHILS 88 % (42.0-75.2); PLATELET ESTIMATE NORMAL (NORMAL)
[2023-06-23 00:56] LABS: PH 5.5 (5.0-8.5); URINE APPEARANCE CLEAR (CLEAR/HAZY); URINE BLOOD NEGATIVE (NEGATIVE); URINE COLOR YELLOW (YELLOW); URINE GLUCOSE NEGATIVE (NEGATIVE); URINE KETONE 3+ (NEGATIVE); URINE NITRATE NEGATIVE (NEGATIVE); URINE PROTEIN(semi-quant) TRACE (NEGATIVE)
[2023-06-23 01:39] VITALS: BP 104/60; PULSE 80
== END 2023-06-23 01:39 | disposition home or self-care (01) ==
LOC: COL.ER 22:08 → LDR 22:08 → COL.ER 22:08 → LDR 22:08 → EDSTATUS 22:52 → LDR 06-23 01:39 → COL.ER 06-23 01:39
PROVIDERS: Emergency Medicine
DX: O21.9 Vomiting of pregnancy, unspecified (principal); O26.892 Other specified pregnancy related conditions, second trimester; R10.13 Epigastric pain; Z87.891 Personal history of nicotine dependence; Z90.49 Acquired absence of other specified parts of digestive tract; Z3A.24 24 weeks gestation of pregnancy
CPT/HCPCS: J2405; J7042; J7120

== ENCOUNTER 2023-07-22 14:17 | Outpatient (CLI) | payer MEDICAID ==
[~2023-07-22] VITALS: Ht 160 cm; Wt 81.0 kg
[2023-07-22 13:36] LABS: HEMOGLOBIN 12.6 g/dl (12.5-16.0); MEAN CELL VOLUME 90 fl (80.0-100.0); MEAN CORPUSCULAR HEMOGLOBIN 32 pg (27-31); MEAN CORPUSCULAR HGB CONC 35 g/dl (33.0-37.0); MEAN PLATELET VOLUME 11.6 fl (7.4-10.4); PLATELET COUNT 194 K/mm3 (130-400); RED BLOOD COUNT 3.99 M/mm3 (4.10-5.30); REDCELL DISTRIBUTION WIDTH-CV 12.5 % (11.5-14.5)
[2023-07-22 13:55] LABS: ALBUMIN 3.2 g/dL (3.5-5.0); BILIRUBIN,TOTAL 0.2 mg/dL (0.2-1.2); CALCIUM 8.7 mg/dL (8.4-10.2); CREATININE, serum 0.55 mg/dL (0.57-1.11); POTASSIUM 3.6 mEq/L (3.5-4.5); TOTAL PROTEIN 6.7 g/dl (6.2-8.1)
[2023-07-22 13:58] VITALS: BP 105/67; PULSE 84; TEMP 98.6
[~2023-07-22 14:17] MED LIST changes: +Acetaminophen 500 MG TAB PO ONE; -LR 1,000 ML IV PRN; -Ondansetron 4 MG/2 ML VIAL IV ONE; +Vedolizumab 300 MG in NS 250 ML IV ONE; +diphenhydrAMINE 50 MG/ML 1 ML VIAL IV ONE; +methylPREDNISolone Sod Succ 40 MG/ML VIAL IV ONE
[2023-07-22 14:36] LABS: BAND 3 % (0-10); EOSINOPHIL 2 % (0-4); LYMPHOCYTE 18 % (20.0-51.0); METAMYELOCYTE 2 % (0-0); NEUTROPHILS 73 % (42.0-75.2)
[2023-07-22 14:37] LABS: ANISOCYTOSIS 1+; POLYCHROMASIA 1+
[2023-07-22 14:38] LABS: PLATELET ESTIMATE NORMAL (NORMAL)
--- NOTE | 2023-07-22 15:02 | NUR ---
PT TOLERATED INFUSION WELL. VS REMAINED WITHIN NORMAL LIMITS. PT FREE FROM ACUTE CONCERNS AND COMPLAINTS UPON DISCHARGE. IV DISCONTINUED.
== END 2023-07-22 15:03 | disposition home or self-care (01) ==
LOC: EUO 14:17
PROVIDERS: Internal Medicine Gastroenterology
DX: K50.80 Crohn's disease of both small and large intestine without complications (principal)
CPT/HCPCS: J1200; J2919; J3380; J7050

== ENCOUNTER 2023-10-03 05:47 | Inpatient (IN) | payer MEDICAID ==
[~2023-10-03] VITALS: Ht 157.5 cm; Wt 85.9 kg
[2023-10-03] VITALS (35 sets, daily range): BP systolic 81–119; BP diastolic 45–90; PULSE 47–64; TEMP 97.8–98.6
[~2023-10-03 05:47] MED LIST changes: -Acetaminophen 500 MG TAB PO ONE; +LR 1,000 ML IV SCH; +Ondansetron 4 MG/2 ML VIAL IV SCH; -Vedolizumab 300 MG in NS 250 ML IV ONE; -diphenhydrAMINE 50 MG/ML 1 ML VIAL IV ONE; -methylPREDNISolone Sod Succ 40 MG/ML VIAL IV ONE
--- NOTE | 2023-10-03 06:20 | NUR ---
THIS RN RECIEVES REPORT ON ADMIT OF SCHEDULED REPEAT SECITON PT. PT REPORTS NO PAIN, NO LEAKING OF FLUID, NO VAGINAL BLEEDING, POSITIVE MOVEMENT "HE MOVES AROUND SO MUCH." PT REPORTS FEELING OCCATIONAL SON[place] SCOTT CONTRACTIONS BUT NOT ABLE TO TIME THEM DUE TO THEM BEING SO IRREGULAR. PT AND PT SPOUSE DO NOT HAVE ANY QUESTIONS AT THIS TIME ABOUT SECTION PROCEDURE. THIS RN REMAINS IN PT ROOM TO BEGIN PREOPERATION PROTOCOL.
[2023-10-03] MEDS ORDERED: LR 1,000 ML IV SCH (06:30)
[2023-10-03 07:03] LABS: HEMATOCRIT 33.5 % (37.0-47.0); HEMOGLOBIN 11.3 g/dl (12.5-16.0); MEAN CELL VOLUME 89 fl (80.0-100.0); MEAN CORPUSCULAR HEMOGLOBIN 30 pg (27-31); MEAN CORPUSCULAR HGB CONC 34 g/dl (33.0-37.0); MEAN PLATELET VOLUME 11.6 fl (7.4-10.4); PLATELET COUNT 178 K/mm3 (130-400); RED BLOOD COUNT 3.75 M/mm3 (4.10-5.30); REDCELL DISTRIBUTION WIDTH-CV 13.2 % (11.5-14.5)
[2023-10-03 08:07] LABS: BAND 1 % (0-10); EOSINOPHIL 3 % (0-4); LYMPHOCYTE 12 % (20.0-51.0); METAMYELOCYTE 1 % (0-0); NEUTROPHILS 73 % (42.0-75.2); PLATELET ESTIMATE NORMAL (NORMAL)
[2023-10-03] MEDS ORDERED: Loratadine 10 MG TAB PO PRN (09:00)
[2023-10-03] MEDS ORDERED: Magnes Hydrox (MOM) 80 MG/ML 30 ML CUP PO PRN (09:00)
[2023-10-03] MEDS ORDERED: Ondansetron 4 MG/2 ML VIAL IV PRN (09:15)
[2023-10-03] MEDS ORDERED: Naloxone 0.4 MG/ML VIAL IV PRN (09:15)
[2023-10-03] MEDS ORDERED: LR 1,000 ML IV PRN (09:15)
[2023-10-03] MEDS ORDERED: Measles/Mumps/Rubella Virus Vaccine Live w Diluent 0.5 ML VIAL SQ SCH (09:15)
[2023-10-03] MEDS ORDERED: oxyCODONE/Acetaminophen 5-325 MG TAB PO PRN (09:15)
--- NOTE | 2023-10-03 10:00 | NUR ---
PT TRANSFERED TO ROOM VIA BED. PT VS STABLE, FUNDUS FIRM AT UMBILICUS, SCANT LOCHIA, NO CLOTS, PT REPORTS NO PAIN "JUST TIRED". 3RD LACTACTED RINGERS FLUID BAG FINISHED BEING INFUSED AT THIS TIME. PT RESTING WITH SPOUSE SUPPORTIVE AT BEDSIDE.
--- NOTE | 2023-10-03 10:45 | NUR ---
PT PAD CHECKED PER THIS RN, SCANT LOCHIA, PAD NOT CHANGED. FUNDUS FIRM AT UMBILICUS. PT ABDOMEN SOFT AND FLAT, PT NOT REPORTING ANY PAIN. PT AND PT SPOUSE CALLING FAMILY AND VISITING AT THIS TIME. PT VS STABLE.
--- NOTE | 2023-10-03 12:00 | NUR ---
PT CALLED OUT FOR RN REPORTING "I AM IN SO MUCH PAIN." THIS RN OBSERVES PT IN ROOM ON BED CRYING AND GUARDING HER ABDOMEN, ALSO AUDIBLY MOANING AND INTERMITTENTLY HOLDING HER BREATH. PT PAD SATURATED WITH BLOOD WITH VISIBLE CLOTS AND CHUX WITH MODERATE AMOUNT OF BLOOD, THIS RN WEIGHED FOR A TOTAL OF 244ML OF BLOOD. PT QBL NOW AT 889 ML. THIS RN ASSESSES NEWTON OUTPUT AND OBSERVES MINIMAL CHANGE, AROUND 20 ML OBSERVED OF URINE OUTPUT. URINE IS DARK YELLOW COLOR, NO ODOR. PT VS STABLE. NOTIFIED OF PT PAIN AND INCREASED LOCHIA, ORDERED METHERGINE 0.2MG INTRAMUSCULAR, TXA 1G IV, MORPHINE IV 5MG NOW AND REPEAT ANOTHER DOSE OF 5MG IN ONE HOUR IF PT PAIN DOES NOT RESOLVE. THIS RN ADMINISTERS ORDERED MEDICATIONS AND BEGINS 4TH BAG OF LACTATED RINGERS FLUID (1000ML). PT SPOUSE SUPPORTIVE AT BEDSIDE, THIS RN ALSO REMAINS AT PT BEDSIDE TO CONTINUE TO ASSESS.
--- NOTE | 2023-10-03 12:51 | NUR ---
THIS RN CHANGES PT CHUX PAD WEIGHING 169ML, QBL NOW 1058. NOTIFIED OF PT QBL. THIS RN REMAINS AT PT BEDSIDE.
--- NOTE | 2023-10-03 13:11 | NUR ---
AND NEIL STRIKE PLATE ATTACHER PT BEDSIDE WITH THIS RN ASSESSING PT. PLAN OF CARE DISCUSSED WITH PT AND CARE TEAM, CONTINUE TO TREAT PT PAIN. PT REPORTS PAIN 10/10 WHEN CRAMPING, BUT "NOT BAD" WHEN RELAXED. THIS RN CHANGES PT CHUX PAD WEIGHING 102ML, QBL NOW AT 1160ML. ORDERS TO GIVE MOTRIN 800MG AT THIS TIME, THIS RN ADMINISTERS MOTRIN PER ORDERS. PT IN BED AUDIBLY MOANING AND DESCRIBING PAIN "MAINLY ON MY LOWER RIGHT STOMACH." PT ABDOMEN AUSCULTATED AND PALPATED PER . REPORTS "NORMAL BOWEL SOUNDS AFTER SECTION," AND ",FEELS SOFT AND FLAT." THIS RN REMAINS AT PT BEDSIDE
[2023-10-03 13:17] LABS: HEMOGLOBIN 10.1 g/dl (12.5-16.0); MEAN CELL VOLUME 87 fl (80.0-100.0); MEAN CORPUSCULAR HEMOGLOBIN 31 pg (27-31); MEAN CORPUSCULAR HGB CONC 36 g/dl (33.0-37.0); MEAN PLATELET VOLUME 11.4 fl (7.4-10.4); PLATELET COUNT 182 K/mm3 (130-400); RED BLOOD COUNT 3.25 M/mm3 (4.10-5.30)
[2023-10-03 13:19] LABS: HEMATOCRIT 28.4 % (37.0-47.0)
--- NOTE | 2023-10-03 13:34 | NUR ---
THIS RN CHANGES PT PAD WEIGHING 66ML, QBL NOW 1226ML. ORDER FENTANYL 50MCG/1ML NOW AND REPEAT THE SAME DOSE IN 30MIN IF PT PAIN IS NOT RESOLVED. PT VS STABLE, AUDIBLY MOANING AND CLOSING EYES INTERMITTENTLY. DUE TO PT BLEEDING AND PAIN THIS RN REMAINS AT PT BEDSIDE AND CALLS FOR CHARGE NURSE ASSISTANCE IN OBTAINING FENTANYL. PT SPOUSE SUPPORTIVE AT BEDSIDE.
[2023-10-03] MEDS ORDERED: fentaNYL 50 MCG/ML 2 ML VIAL IV ONE ×5 (14:00→23:30)
--- NOTE | 2023-10-03 14:00 | NUR ---
1400 THIS RN ADMINISTERES FENTANYL 50MCG/1ML IV. 1405 PT REPORTS FEELING "FLOATY" BUT "IT STILL IS A 10/10 PAIN WHEN CONTRACTIONS COME." PT CLOSING EYES AND AUDIBLY GROANING INTERMITTENTLY. PT CAN TALK WITHOUT MOANING INBETWEEN "CONTRACTIONS." 1430 THIS RN ASKS PT TO RATE PAIN A 0 OUT OF 10, PT REPORTS "10/10 WHEN I FEEL CONTRACTIONS." THIS RN ASKS IF PT WANTS THE SECOND DOSE OF FENTANYL, PT RESPONDS "YES." THIS RN ADMINISTERS 2ND DOSE OF FENTANYL 50MCG/1ML. ALSO ORDERS LASIX ONE TIME DOSE TO HELP WITH PT URINE OUTPUT. TOTAL PT URINE OUTPUT AT THIS TIME IS AROUND 200ML. TOTAL INPUT OF LACTATED RINGER FLUID FOR PT IS 4000ML. THIS RN WEIGHS PT PAD AT 57ML, TOTAL QBL NOW 1283ML. NOTIFIED. THIS RN REMIAINS AT PT BEDSIDE. 1435 PT REPORTS "I AM ABLE TO TALK THROUGH THE CONTRACTIONS NOW SO IT FEELS LIKE ITS GETTING BETTER." THIS RN OBSERVES PT NOT AUDIBLY MOANING INTERMITTENTLY, PT VS STABLE, PT SMILING AND CONVERSING WITH VISITORS. PT FUNDUS FIRM AT UMBILICUS, NEWTON DRAINING CLEAR YELLOW URINE.
[2023-10-03] MEDS ORDERED: Morphine 4 MG/ML VIAL IV ONE ×2 (14:15→19:30)
[2023-10-03] MEDS ORDERED: Furosemide 40 MG/4 ML VIAL IV ONE (14:15)
[2023-10-03 14:16] LABS: BAND 3 % (0-10); LYMPHOCYTE 6 % (20.0-51.0); NEUTROPHILS 90 % (42.0-75.2)
[2023-10-03 14:17] LABS: PLATELET ESTIMATE NORMAL (NORMAL)
[2023-10-03] MEDS ORDERED: Ibuprofen 800 MG TAB PO SCH (14:50)
--- NOTE | 2023-10-03 16:20 | NUR ---
THIS RN CHANGES PT PAD WEIGHING 116ML, QBL NOW 1399ML. PT REPORTS BEING ABLE TO REST AND THAT PAIN IS BETTER "I AM ABLE TO CALM MYSELF WHEN I FEEL THE CONTRACTIONS." THIS RN NOTIFIES OF PT IMPROVEMENT, NO NEW ORDERS AT THIS TIME. PT VS STABLE, FUNDUS FIRM DOWN 1 FINGERBREADTH AT THIS TIME.
[2023-10-03] MEDS ORDERED: Sennosides/Docusate 8.6-50 MG TAB PO SCH (17:00)
--- NOTE | 2023-10-03 17:00 | NUR ---
PT HOLDING BABY AND RESTING, THIS RN DOES NOT OBSERVE PT MOANING OR CLOSING EYES DUE TO PAIN. PT REQUESTS BOTTLE AT THIS TIME TO FEED BABY AND "I WILL CALL OUT WHEN I'M DONE BECAUSE I'LL PROBABLY NEED HELP BURPING HIM." PT AWAKE AND ALERT X3.
--- NOTE | 2023-10-03 17:30 | NUR ---
PT CALLED OUT REPORTING "I JUST FELT MYSELF PASS A HUGE CLOT THE SIZE OF A BASEBALL I JUST LOOKED." THIS RN IMMEDIATELY AT PT BEDSIDE, PT MOANING AND CLOSING EYES AND GUARDING ABDOMEN INTERMITTENTLY. PT ABDOMEN SOFT AND FLAT, CLOT AROUND THE SIZE OF A 'SOFTBALL' OBSERVED PER THIS RN INBETWEEN PT LEGS OUTSIDE OF PT PERINEUM. PT PAD AND CHUX WEIGHED 461ML, QBL TOTAL NOW 1860ML. , SITE TECHNICIAN OB, NOTIFIED PER THIS RN, AND ORDERS GIVEN FOR HEMABATE INTRAMUSCULAR NOW, METHERGINE 0.2MG PO Q4HRS FOR 6 DOSES START NOW, ZOFRAN 4MG FOR NAUSEA NOW, AND REPEAT CBC TOMORROW (10/04/23) MORNING. ALSO REPORTS SHE WILL BE ON THE UNIT SOON. PT FUNDUS FIRM DOWN 1 FINGERBREADTH WITH MODERATE LOCHIA, NEWTON DRAINING CLEAR YELLOW URINE. PT VS STABLE AND AWAKE AND ALERT X3. THIS RN REMAINS AT PT BEDSIDE.
[2023-10-03] MEDS ORDERED: Carboprost 250 MCG/ML AMP IM ONE (18:45)
--- NOTE | 2023-10-03 18:45 | NUR ---
1844- BEDSIDE SHIFT REPORT RECEIVED. PT UNCOMFORTABLE. NEW PAD ON. 1847- DR TY TO BEDSIDE. SHE ASSESSES FUNDUS AND BLEEDING. DISCUSSES BLEEDING, LABWORK, AND PAIN MANAGEMENT WITH PT AND ANSWERS QUESTIONS. ORDERS GIVEN. 1901- FENTANYL 50MCG GIVEN IV FOR PAIN REQUESTED BY PT AND ORDERED BY DR TY. PT REPORTS PAIN 01/21. 1919- HEALTH COMPANION AT BEDSIDE FOR LAB DRAW. PT STILL UNCOMFORTABLE AND RATING PAIN 01/21. 1940- REPEAT DOSE OF FENTANYL GIVEN ORDERED. PT STILL RATING PAIN 01/21. 1944- PAD CHANGED. IT IS 3\4 SATURATED IN AN HOUR. QBL 114ML. 1949- DR TY UPDATED WITH CURRENT PAIN, QBL 114ML FOR LAST HOUR. ORDERS RECEIVED FOR A SECOND DOSE OF TXA.
[2023-10-03 19:36] LABS: HEMATOCRIT 26.9 % (37.0-47.0); HEMOGLOBIN 9.3 g/dl (12.5-16.0)
[2023-10-03] MEDS ORDERED: Tranexamic Acid 1,000 MG in NS 100 ML IV ONE ×2 (20:00)
--- NOTE | 2023-10-03 20:12 | NUR ---
2012- ROLES AT BEDSIDE. SHE ASSESSES PT COMPLAINT OF INCREASED ABDOMINAL PAIN. DR TY INFORMED PT THAT IF HER PAIN AND BLEEDING DO NOT IMPROVE THERE IS A CHANCE THAT SHE WILL HAVE TO GO TO THE OR AND HAVE SURGERY TO FIND THE CAUSE OF THE INCREASED PAIN. PT ACKNOWLEGES THE INFORMATION.
[2023-10-03] MEDS ORDERED: Methylergonovine 0.2 MG/ML 1 ML AMPUL IM ONE (20:15)
[2023-10-03] MEDS ORDERED: Methylergonovine 0.2 MG TAB PO SCH (20:30)
--- NOTE | 2023-10-03 20:45 | NUR ---
2044- DR TY TO BEDSIDE TO EVALUATE PT PAIN AND BLEEDING. PT REPORTS PAIN STILL "ALL OVER" HER ABDOMEN BUT SHE HAS BEEN ON THE PHONE WITH HER FAMILY. PT REPORTS STILL FEELING SOME SHOULDER PAIN WELL. PERIPAD CHANGED AND QBL IS 25ML FOR THE LAST HOUR. DR TY DISCUSSES PLAN OF CARE WITH PT TO WAIT 45MIN TO AN HOUR AND RECHECK HER HEMOGLOBIN, SHE FEELS LIKE BLEEDING IS SLOWING DOWN AT THIS TIME. PT AGREEABLE WITH THIS PLAN OF CARE AT THIS TIME. 2049- NEIL PONCE GETS UPDATE FROM DR TY ON PLAN OF CARE. DR TY OK WITH PT RECEIVING ORDERED PERCOCETS FOR PAIN AND THESE ARE PROVIDED.
[2023-10-03] MEDS ORDERED: traZODone 50 MG TAB PO PRN (21:00)
--- NOTE | 2023-10-03 21:50 | NUR ---
2150- PT CALLS OUT WITH INCREASED PAIN. NURSE TO BEDSIDE WITH SCHEDULED MOTRIN AND MYLICON. PT IS CRYING AND STATES THAT HER PAIN IS EVERYWHERE. MEDICATIONS PROVIDED. VAGINAL BLEEDING IS WITHIN NORMAL LIMITS, FUNDUS FIRM. STOMACH IS SOFT AND TENDER TO TOUCH. PLAN OF CARE FOR PAIN MANAGEMENT DISCUSSED AND QUESTIONS ANSWERED. PT VISIBLY UPSET.
--- NOTE | 2023-10-03 22:00 | NUR ---
2200- PUTTY MIXER HERE FOR LAB DRAW. 2230- PT IS CRYING, STATES THE PAIN IT EVERYWHERE AND IT DOESN'T GET BETTER. WANTS "ANYTHING MORE FOR PAIN." PHENERGAN PROVIDED ORDERED. 2240- PT STATES SHE WANTS TO SIT ON THE SIDE OF THE BED, SHE IS HOPING THAT WILL HELP HER SHOULDER PAIN. SHE STATES IF HER SHOULDER PAIN WOULD JUST GO AWAY, THEN SHE COULD HANDLE IT. PT ASSISTED TO SITTING ON EDGE OF BED. 2245- PT STATES SITTING ON THE EDGE OF THE BED IS HELPING HER SHOULDER PAIN, BUT SHE NOW FEELS LIKE SHE NEEDS TO "POOP." COMMODE OFFERED AND PT IS AGREEABLE WITH THIS. PT ASSISTED TO THE COMMODE. 2255- PT PASSES BASEBALL SIZED CLOT ON COMMODE. SHE IS ALSO ABLE TO PASS SOME GAS AND STATES THAT HAS HELPED ALOT. 2303- DR ROLES UPDATED CHARTED. ORDER FOR CBC IN AM AND PAIN MEDICATION TO GIVE WITH METHERGINE. 2310- PT ASSISTED UP FROM COMMODE. SHE WAS UNABLE TO HAVE BOWEL MOVEMENT BUT WAS ABLE TO PASS GAS. SHE STATES THAT HAS HELPED WITH HER PAIN, ESPECIALLY IN HER SHOULDER. PT BACK TO BED AND POSITIONED FOR COMFORT. QBL FOR CLOT 114ML.
[2023-10-03 22:27] LABS: HEMATOCRIT 26.9 % (37.0-47.0); HEMOGLOBIN 9.1 g/dl (12.5-16.0)
[2023-10-03] MEDS ORDERED: Promethazine 50 MG/ML 1 ML VIAL IM ONE (22:30)
[2023-10-04] VITALS (9 sets, daily range): BP systolic 94–104; BP diastolic 49–68; PULSE 68–81; TEMP 97.9–99
--- NOTE | 2023-10-04 05:50 | NUR ---
0550- IV TO SALINE LOCK, PT ASSISTED TO SITTING POSITION ON BED. NO DIZZINESS. PT ASSISTED TO BATHROOM, NEWTON CATHETER DC'D WITH BALLOON INTACT. CLEAN GOWN, PAD, AND PANTIES PROVIDED. PT WISHES TO SIT ON TOILET TO PASS SOME GAS. SHE DENIES DIZZINESS AND IS INSTRUCTED TEACHER HOME THERAPY LIGHT USAGE IF SHE NEEDS ASSISTANCE. 0600- MYLICON PROVIDED REQUESTED. 0610- PT ASSISTED BACK TO BED, BINDER PLACED, PT POSITIONED FOR COMFORT.
[2023-10-04 07:05] LABS: HEMATOCRIT 22.6 % (37.0-47.0); HEMOGLOBIN 7.7 g/dl (12.5-16.0)
--- NOTE | 2023-10-04 15:00 | NUR ---
Pt up to bathroom, feeling dizzy and hot. Pt escorted to sitting on bench near window. Pt reported feeling much better, but cramping and "feels like there is a bubble just below the ribs" causing discomfort. Pt wishes to do some walking. Pt given gown as robe, and crib to hold while pushing down the camacho. Pt instructed to sit in place if feeling dizzy or lightheaded. After 1/[address] down camacho, pt reported feeling very dizzy and hot. Wheelchair obtained, used to take pt back to bed. Pt reported at this time she feels heaviness in chest and very fatigued. Pt assisted into resting position. Roles on unit and notified. Orders obtained for type and cross 1 unit of blood.
--- NOTE | 2023-10-04 21:10 | NUR ---
PT UP TO BR TO VOID AND SHOWER. S.O. ASSISTING HER. PT DOING WELL, STEADY ON HER FEET. DENIES DIZZINESS OR LIGHTHEADEDNESS. GOWN, PAD AND PANTIES CHANGED. BED LINEN CHANGED WHILE PT IN SHOWER.
[2023-10-05 08:31] VITALS: BP 106/63; PULSE 77; TEMP 97.6
[2023-10-05] MEDS ORDERED: IBU800 M1 PO (09:57)
[2023-10-05 09:58] LABS: MEAN CELL VOLUME 91 fl (80.0-100.0); MEAN CORPUSCULAR HGB CONC 34 g/dl (33.0-37.0); MEAN PLATELET VOLUME 11.9 fl (7.4-10.4); PLATELET COUNT 166 K/mm3 (130-400); RED BLOOD COUNT 2.53 M/mm3 (4.10-5.30); REDCELL DISTRIBUTION WIDTH-CV 13.8 % (11.5-14.5)
[2023-10-05] MEDS ORDERED: PERCOCET 325 MG1 TA2 PO (09:58)
[2023-10-05 10:01] LABS: HEMOGLOBIN 7.8 g/dl (12.5-16.0); MEAN CORPUSCULAR HEMOGLOBIN 31 pg (27-31)
[2023-10-05] MEDS ORDERED: FERROUSAL325 MG PO (10:01)
[2023-10-05 10:38] LABS: BAND 3 % (0-10)
[2023-10-05 10:39] LABS: EOSINOPHIL 2 % (0-4); LYMPHOCYTE 22 % (20.0-51.0); NEUTROPHILS 65 % (42.0-75.2); PLATELET ESTIMATE NORMAL (NORMAL)
== END 2023-10-05 11:40 | disposition home or self-care (01) | DRG 787 ==
LOC: OB 05:47
PROVIDERS: Obstetrics & Gynecology; ADMIT Obstetrics & Gynecology
PROC: 10D00Z1 Extraction of Products of Conception, Low, Open Approach (ICD-10-PCS; principal; 2023-10-03)
PROC: 30233N1 Transfusion of Nonautologous Red Blood Cells into Peripheral Vein, Percutaneous Approach (ICD-10-PCS; 2023-10-04)
DX: O34.211 Maternal care for low transverse scar from previous cesarean delivery (principal); D62 Acute posthemorrhagic anemia; K50.90 Crohn's disease, unspecified, without complications; Z37.0 Single live birth; O90.81 Anemia of the puerperium; O99.62 Diseases of the digestive system complicating childbirth; O69.81X0 Labor and delivery complicated by cord around neck, without compression, not applicable or unspecified; Z3A.39 39 weeks gestation of pregnancy; Z90.49 Acquired absence of other specified parts of digestive tract
CPT/HCPCS: J1940; J2210; J2270; J2405; J2550; J3010; J7120; P9016

== ENCOUNTER 2023-11-24 11:22 | Outpatient (CLI) | payer MEDICAID ==
[~2023-11-24] VITALS: Ht 157.5 cm; Wt 79.7 kg
[~2023-11-24 11:22] MED LIST changes: +FERROUSAL325 MG PO; -LR 1,000 ML IV SCH; -Ondansetron 4 MG/2 ML VIAL IV SCH
[2023-11-24 11:59] LABS: BASO % 0.6 % (0.0-2.0); BILIRUBIN,TOTAL 0.3 mg/dL (0.2-1.2); CALCIUM 8.8 mg/dL (8.4-10.2); CREATININE, serum 0.69 mg/dL (0.57-1.11); EOS # 0.2 K/mm3 (0.0-0.7); EOS % 3.1 % (0.0-4.0); GRAN # 3.8 K/mm3 (1.4-6.5); GRAN % 59.8 % (42.2-75.2); HEMOGLOBIN 11.4 g/dl (12.5-16.0); LYMPH # 1.9 K/mm3 (1.2-3.4); LYMPH % 29.7 % (20.0-51.0); MEAN CELL VOLUME 84 fl (80.0-100.0); MEAN CORPUSCULAR HEMOGLOBIN 27 pg (27-31); MEAN CORPUSCULAR HGB CONC 32 g/dl (33.0-37.0); MEAN PLATELET VOLUME 10.7 fl (7.4-10.4); MONO # 0.4 K/mm3 (0.1-0.6); MONO % 6.3 % (1.7-9.3); PLATELET COUNT 297 K/mm3 (130-400); POTASSIUM 3.9 mEq/L (3.5-4.5); RED BLOOD COUNT 4.28 M/mm3 (4.10-5.30); REDCELL DISTRIBUTION WIDTH-CV 14.7 % (11.5-14.5)
[2023-11-24 12:00] LABS: HEMATOCRIT 35.8 % (37.0-47.0)
[2023-11-24 12:09] VITALS: BP 109/64; PULSE 60; TEMP 98.3
[2023-11-24] MEDS ORDERED: methylPREDNISolone Sod Succ 125 MG/2 ML VIAL IV ONE (12:15)
[2023-11-24] MEDS ORDERED: diphenhydrAMINE 50 MG/ML 1 ML VIAL IV ONE (12:15)
[2023-11-24] MEDS ORDERED: Acetaminophen 500 MG TAB PO ONE (12:15)
[2023-11-24] MEDS ORDERED: Vedolizumab 300 MG in NS 250 ML IV SCH (12:30)
== END 2023-11-24 13:31 | disposition home or self-care (01) ==
LOC: EUO 11:22
PROVIDERS: Internal Medicine Gastroenterology
DX: K50.80 Crohn's disease of both small and large intestine without complications (principal)
CPT/HCPCS: J1200; J2919; J3380; J7050